=== PATIENT | female | born 1940 | race Caucasian/White ===

== ENCOUNTER → 2017-10-09 15:51 | Outpatient (CLI) | payer MEDICARE, SELFPAY ==
[2017-10-09 18:06] LABS: Hematocrit 37.7 % (37-47); Hemoglobin 12.3 g/dl (12.0-15.0); Mean Corp Hgb Conc 32.6 g/gl (32-36); Mean Corpuscular Hgb 30.2 pg (27.0-32.0); Mean Corpuscular Volume 92.6 fL (81-99); Mean Platelet Vol. 9.2 fl (6.2-12.0); Platelet Count 331 K/mm3 (150-450); RBC Distribution Width CV 12.9 % (11.6-14.6); RBC Distribution Width SD 43.6 fl (35.1-43.9); Red Blood Count 4.07 M/mm3 (4.2-5.4); White Blood Count 5.5 K/mm3 (4.4-11.0)
[2017-10-09 18:08] LABS: Scan Indicated on CBC? Y/N NO
[2017-10-09 18:26] LABS: Anion Gap 6 (5-15); BUN 9 mg/dL (7-18); BUN/Creat Ratio 15.4 RATIO (10-20); Calcium,Total 8.7 mg/dL (8.5-10.1); Chloride 100 mmol/L (98-107); Creatinine, Serum 0.59 mg/dL (0.55-1.02); EST Glomerular Filtration Rate 106 mL/min (>60); Est Glom Filt Rate - Afr Amer 128 mL/min (>60); Ferritin 40 ng/mL (8-252); Glucose 86 mg/dL (74-106); Iron 78 ug/dL (50-170); Potassium 3.9 mmol/L (3.5-5.1); Sodium Level 135 mmol/L (136-145); T4 Free Direct 0.94 ng/dL (0.76-1.46); Thyroid Stim Hormone (TSH) 1.27 uIU/mL (0.358-3.74)
[2017-10-09 20:07] LABS: Magnesium 2.1 mg/dL (1.6-2.6)
[2017-10-10 09:01] LABS: Vitamin D,25 Hydroxy 32.9 ng/mL (29.95-100.01)
== END ==
PROVIDERS: Family Provider Family Medicine; PCP Family Medicine; Visit Provider Family Medicine
DX: G25.81 Restless legs syndrome (principal); G62.9 Polyneuropathy, unspecified; E55.9 Vitamin D deficiency, unspecified; E03.9 Hypothyroidism, unspecified
CPT/HCPCS: 36415; 80048; 82306; 82728; 83540; 83735; 84439; 84443; 85027

== ENCOUNTER → 2018-04-23 12:24 | Outpatient (CLI) | payer MEDICARE, SELFPAY ==
[2018-04-23 15:41] LABS: Hematocrit 36.3 % (37-47); Hemoglobin 11.8 g/dl (12.0-15.0); Mean Corp Hgb Conc 32.5 g/gl (32-36); Mean Corpuscular Hgb 31.1 pg (27.0-32.0); Mean Corpuscular Volume 95.8 fL (81-99); Mean Platelet Vol. 9.7 fl (6.2-12.0); Platelet Count 303 K/mm3 (150-450); RBC Distribution Width CV 13.2 % (11.6-14.6); Red Blood Count 3.79 M/mm3 (4.2-5.4); White Blood Count 4.7 K/mm3 (4.4-11.0)
[2018-04-23 15:45] LABS: Scan Indicated on CBC? Y/N NO
[2018-04-23 16:05] LABS: Vitamin B12 502 pg/mL (211-911)
[2018-04-23 16:46] LABS: Anion Gap 5 (5-15); BUN 11 mg/dL (7-18); BUN/Creat Ratio 17.8 RATIO (10-20); Calcium,Total 8.6 mg/dL (8.5-10.1); Chloride 103 mmol/L (98-107); Creatinine, Serum 0.62 mg/dL (0.55-1.02); EST Glomerular Filtration Rate 99 mL/min (>60); Est Glom Filt Rate - Afr Amer 120 mL/min (>60); Glucose 83 mg/dL (74-106); Iron 71 ug/dL (50-170); Potassium 4.4 mmol/L (3.5-5.1); Sodium Level 137 mmol/L (136-145); Thyroid Stim Hormone (TSH) 1.21 uIU/mL (0.358-3.74)
--- OUTSIDE RECORDS SUMMARY | 2018-06-18 15:41 | XMS RPT_ITS ---
:1940 Author Organization OHIP Care Team Providers Name Role Phone SHAILESH LEUNG Attending Unavailable SHAILESH LEUNG Referring Unavailable Kenny Cooley Attending Unavailable Kenny Cooley Referring Unavailable Kenny Cooley Primary Care Unavailable Kenny Cooley Attending Unavailable Kenny Cooley Primary Care Unavailable PROBLEMS PROBLEMS DATE TYPE CONDITION / CODE ATTENDING STATUS SOURCE 03/06/2018 Active Unspecified NA Active [facility] condition Main [place] associated with Repository female genital organs and menstrual cycle / N94.9(ICD-10) PROCEDURES PROCEDURES No Procedure Records FoundRESULTS RESULTS CBC-COMPLETE BLOOD CNT Collected: 04/23/2018 Status: F Source: [place] NO DIFF 12:25 PM [facility] REPOSITORY TYPE CODE TESTS RESULT OUT OF RANGE REFERENCE UNITS LAB L100.1000 4.4-11.0 K/mm3 Normal WBC 4.7 LAB L100.1200 4.2-5.4 M/mm3 Low RBC 3.79 LAB L100.1300 12.0-15.0 g/dl Low HGB 11.8 LAB L100.1400 37-47 % Low HCT 36.3 LAB L100.1500 81-99 fL Normal MCV 95.8 LAB L100.1600 27.0-32.0 pg Normal MCH 31.1 LAB L100.1700 32-36 g/gl Normal MCHC 32.5 LAB L100.1810 11.6-14.6 % Normal RDW CV 13.2 LAB L100.1820 35.1-43.9 fl High RDW SD 44.0 LAB L100.1900 150-450 K/mm3 Normal PLT 303 LAB L100.2000 6.2-12.0 fl Normal MPV 9.7 Performed By: #### L100.0500, L503.0105, L506.1000, L500.2500, L501.9520, L503.6150 #### [facility] [address] [place], [address] VITAMIN B12 Collected: 04/23/2018 Status: F Source: [place] 12:25 PM [facility] REPOSITORY TYPE CODE TESTS RESULT OUT OF RANGE REFERENCE UNITS LAB L503.0105 211-911 pg/mL Normal Vitamin B12 502 Performed By: #### L100.0500, L503.0105, L506.1000, L500.2500, L501.9520, L503.6150 #### [facility] [address] [place], [address] VITAMIN D,25 HYDROXY Collected: 04/23/2018 Status: F Source: [place] 12:25 PM [facility] REPOSITORY TYPE CODE TESTS RESULT OUT OF REFERENCE UNITS RANGE LAB L506.1000 29.95-100.01 ng/mL Low Vitamin D 29.0 25-OH Result Comment: Vitamin D 25(OH) Status Range Deficiency <20 ng/mL (50nmol/L) Insuffciency 20 - 30 ng/mL (50 - 75 nmol/L) Sufficiency 30 - 100 ng/mL (75 - 250 nmol/L) Toxicity >100 ng/mL (>250 nmol/L) Performed By: #### L100.0500, L503.0105, L506.1000, L500.2500, L501.9520, L503.6150 #### [facility] [address] [place], [address] BASIC METABOLIC Collected: 04/23/2018 Status: F Source: [place] PROFILE (BMP) 12:25 PM [facility] REPOSITORY TYPE CODE TESTS RESULT OUT OF RANGE REFERENCE UNITS LAB L501.0100 74-106 mg/dL Normal GLU 83 Result Comment: Please note revised GLUCOSE reference range effective 2017. LAB L501.1000 7-18 mg/dL Normal BUN 11 LAB L501.1100 0.55-1.02 mg/dL Normal CREAT,SERUM 0.62 Result Comment: The validity of the calculated GFR AND GFRAA in patients over 70 years has not been determined. Clinical correlation is essential. LAB L501.1110 >60 mL/min Normal EST GFR 99 Result Comment: Non- GFR Calc LAB L501.1115 >60 mL/min Normal EST GFR - AA 120 Result Comment: GFR Calc LAB L501.1300 10-20 RATIO Normal BUN/CRE 17.8 LAB L501.2200 8.5-10.1 mg/dL CA Normal 8.6 LAB L501.5300 136-145 mmol/L NA Normal 137 LAB L501.5600 3.5-5.1 mmol/L K Normal 4.4 LAB L501.5900 98-107 mmol/L CL Normal 103 LAB L501.6100 21.0-32.0 mmol/L Normal CO2 29.0 LAB L501.6200 5-15 Normal GAP 5 Performed By: #### L100.0500, L503.0105, L506.1000, L500.2500, L501.9520, L503.6150 #### [facility] [address] [facility] [place], [place], [id number] THYROID STIM HORMONE Collected: 04/23/2018 Status: F Source: [place] (TSH) 12:25 PM [facility] REPOSITORY TYPE CODE TESTS RESULT OUT OF RANGE REFERENCE UNITS LAB L501.9520 0.358-3.74 uIU/mL Normal TSH 1.21 Performed By: #### L100.0500, L503.0105, L506.1000, L500.2500, L501.9520, L503.6150 #### [facility] [address] [facility] [place], [place], [id number] IRON Collected: 04/23/2018 Status: F Source: [place] 12:25 PM [facility] REPOSITORY TYPE CODE TESTS RESULT OUT OF RANGE REFERENCE UNITS LAB L503.6150 50-170 ug/dL Normal IRON 71 Performed By: #### L100.0500, L503.0105, L506.1000, L500.2500, L501.9520, L503.6150 #### [facility] [place], [address] PROGRESS Observed: 03/10/2018 Status: COMPLETED Source: [place] 8:29 AM [facility] REPOSITORY HNO ID: [id number] Author: Shailesh Leung Service: (none) Author Type: Physician Type: Progress Notes Filed: 03/10/2018 8:29 AM Note Text: Can you please let the patient know her ultrasound was unchanged from her prior ultrasound last year? Right ovarian cyst measuring 2.6 cm in size; unchanged. No further workup or treatment needed. To follow up at annual exam. PROGRESS Observed: 03/06/2018 Status: COMPLETED Source: [place] 3:57 PM [facility] REPOSITORY HNO ID: [id number] Author: Teresa Chen Rdms Service: (none) Author Type: (none) Type: Progress Notes Filed: 03/06/2018 3:58 PM Note Text: Radiology Service Progress Note PATIENT NAME: Aram Novoa DATE OF SERVICE: March 06, 2018 TIME: 3:57 PM PATIENT IDENTITY VERIFICATION COMPLETED USING TWO (2) METHODS: Patient confirmed name verbally and Date of . PATIENT GENDER DATA: Female. status: : No status: NO. PATIENT RELEVANT IMPLANT DATA REVIEWED: Not Applicable RADIOLOGY DEPARTMENT: Ultrasound PERIPHERAL IV DATA: Not applicable SIGNED BY: Teresa Chen Rdms March 06, 2018 3:57 PM US FEMALE PELVIS Observed: 03/06/2018 Status: F Source: [facility] 2:37 PM [facility] REPOSITORY * * *Final Report* * * DATE OF EXAM: Mar 06 2018 2:37PM WRU 1060 - US FEMALE PELVIS TRANSVAG / PROCEDURE REASON: Adnexal cyst * * * * Physician Interpretation * * * * EXAMINATION: TRANSVAGINAL AND LIMITED TRANSABDOMINAL PELVIC ULTRASOUND HISTORY: Adnexal cyst TECHNIQUE: Sonography of the pelvis was performed by transvaginal and transabdominal (limited) techniques. Images were obtained and stored in a permanent archive. MQ: [id number] COMPARISON: 02/11/2017 FLMP: Unknown RESULT: Uterus size: 5.7 x 2.4 x 3.2 cm -Orientation: Anteverted -Myometrium: Normal -Endometrial echo complex: 0.3 cm -Cervix: normal Right ovary: 3.3 x 1.7 x 2.5 cm Multiple mildly complex cystic structures in the RIGHT adnexa largest 2.6 x 1.4 x 1.8 cm. This is similar to the previous study. Left ovary: 1.5 x 1.3 x 1.6 cm Simple cyst in the LEFT ovary 5 mm in size. Pelvis free fluid: None seen IMPRESSION: Multiple bilateral cystic structures in the adnexal regions. Drying Unit Felting Machine Operator: LOLIS Transcribe Date/Time: Mar 09 2018 9:08A Dictated by : J LUIS SHANE DO This examination was interpreted and the report reviewed and electronically signed by: J LUIS SHANE DO on Mar 09 2018 5:34PM EST [id number] PROGRESS Observed: 03/04/2018 Status: COMPLETED Source: [place] 1:[address] [facility] [place] REPOSITORY HNO ID: [id number] Author: Shailesh Leung Service: (none) Author Type: Physician Type: Progress Notes Filed: 03/04/2018 2:41 PM Note Text: Arma Novoa is a 77 year old who presents for her annual gynecologic exam with complaints of depression. from [place] 2 years ago. She states she feels alone and sad at times. Has 2 sons. One she has not seen in 28 years. The other is in the area, and recently lost his to breast cancer. Denies suicidal ideations today. She states she sees her PCP for depression and is currently on medication for this. Postmenopausal: Yes, no PMB HRT use: Yes, vaginal estrogen, not using currently as she states her vaginal dryness is not bothering her History of abnormal pap: No Last mammogram: 2014 normal History of abnormal mammogram: No Sexually active: No Hot flashes: No Night sweats: No Vaginal dryness: Yes DEXA 2015 - Osteoporosis Obstetric History T2 L2 SAB0 TAB0 Ectopic0 Multiple0 Live Births0 PAST MEDICAL HISTORY Diagnosis Date - Adjustment disorder with depressed mood - Mitral valve disorders(424.0) MITRAL VALVE PROLAPSE - Nausea alone - Other osteoporosis - Unspecified constipation PAST SURGICAL HISTORY Procedure Laterality Date - BIOPSY BREAST x 2 one on each breast, plus several aspirations - [place]ONOS[place]/ [place] W/[place] [facility] [place] COLONOSCOP W/ OR W/O BRSH SPEC 06/17/2008 Colonoscopy - EGD W/O OR W/BRUSH/WASH 06/17/2008 EGD - PAST SURGICAL HISTORY OF colonization in the 60's for cervical ca FAMILY HISTORY Problem Relation Age of Onset - Cancer Mother ovarian - Breast Cancer Maternal Aunt SOCIAL HISTORY Social History Substance Use Topics - Smoking status: Former Smoker Packs/day: 2.00 Years: 15.00 Types: Cigarettes - Smokeless tobacco: Never Used Comment: quit 1976 - Alcohol use Yes Comment: Occasionally REVIEW OF SYSTEMS Abdomen: No abdominal pain, nausea, vomiting, diarrhea, or constipation Bladder: No dysuria, gross hematuria, urinary frequency Breast: No breast lumps, nipple d/c, overlying skin changes, redness or skin retraction Allergies and current medication updated:Yes EXAM: There were no vitals taken for this visit. GENERAL: emotional, female in no apparent distress HEENT: Normocephalic and atraumatic NECK: full range of motion DERMATOLOGY: Normal and without lesions BREAST: soft, non-tender, symmetric, no dominant mass, normal nipple-areolar complex, no lymphadenopathy and no nipple discharge CHEST: Normal inspiratory effort ABDOMEN: soft, non-tender and no masses PELVIC: external genitalia normal and atrophic appearing, normal Bartholin's glands, urethra, [place]'s glands, no vulvar lesions, no cervical lesions, physiologic discharge present, normal appearing perineal body and perianal region, vaginal mucosa atrophic BIMANUAL: uterus normal size, shape and consistency, no adnexal masses and non-tender NEURO: alert and oriented x3,exam grossly non-focal EXTREMITIES: normal ASSESSMENT/PLAN: 1) Health maintenance: Pap/HPV screening no longer needed. Mammogram no longer needed. Discussed plan with patient, and she no longer wishes to have mammograms. Encouraged self breast awareness. Nutrition, exercise and routine health maintenance exams reviewed. Calcium/Vitamin D supplementation information reviewed. Colon cancer screening: Up to date per patient. BMD: Encouraged patient to get repeat BMD. Had recent fall. Discussed fall precautions and weight bearing exercise. Patient considering a BMD, but does not want one at this time. 2) 2 cm right ovarian cyst on US: Repeat pelvic US ordered 3) Depression: Listening and support provided today. Encouraged patient to follow up with PCP DO JAY Ramírez Observed: 03/04/2018 Status: COMPLETED Source: [place] 1:15 PM [facility] REPOSITORY Office Visit (WOOB) ARAM NOVOA ([id number]) 1940 F Date Time Provider Department 03/04/18 1:15 PM SHAILESH LEUNG During your visit today, we recorded the following information about you: Blood pressure Weight Height 120/66 53.4 kg 1.594 m Shailesh Leung MD 03/04/2018 2:41 PM Signed Aram Aide Novoa is a 77 year old who presents for her annual gynecologic exam with complaints of depression. from Alzheimers 2 years ago. She states she feels alone and sad at times. Has 2 sons. One she has not seen in 28 years. The other is in the area, and recently lost his to breast cancer. Denies suicidal ideations today. She states she sees her PCP for depression and is currently on medication for this. Postmenopausal: Yes, no PMB HRT use: Yes, vaginal estrogen, not using currently as she states her vaginal dryness is not bothering her History of abnormal pap: No Last mammogram: 2014 normal History of abnormal mammogram: No Sexually active: No Hot flashes: No Night sweats: No Vaginal dryness: Yes DEXA 2014 - Osteoporosis Obstetric History T2 L2 SAB0 TAB0 Ectopic0 Multiple0 Live Births0 PAST MEDICAL HISTORY Diagnosis Date - Adjustment disorder with depressed mood - Mitral valve disorders(424.0) MITRAL VALVE PROLAPSE - Nausea alone - Other osteoporosis - Unspecified constipation PAST SURGICAL HISTORY Procedure Laterality Date - BIOPSY BREAST x 2 one on each breast, plus several aspirations - [place]OSCOP W/ [place] W/[place] [facility] [place] - COLONOSCOP W/ OR W/O BRSH SPEC 06/17/2008 Colonoscopy - EGD W/O OR W/BRUSH/WASH 06/17/2008 EGD - PAST SURGICAL HISTORY OF colonization in the 60's for cervical ca FAMILY HISTORY Problem Relation Age of Onset - Cancer Mother ovarian - Breast Cancer Maternal Aunt SOCIAL HISTORY Social History Substance Use Topics - Smoking status: Former Smoker Packs/day: 2.00 Years: 15.00 Types: Cigarettes - Smokeless tobacco: Never Used Comment: quit 1975 - Alcohol use Yes Comment: Occasionally REVIEW OF SYSTEMS Abdomen: No abdominal pain, nausea, vomiting, diarrhea, or constipation Bladder: No dysuria, gross hematuria, urinary frequency Breast: No breast lumps, nipple d/c, overlying skin changes, redness or skin retraction Allergies and current medication updated:Yes EXAM: There were no vitals taken for this visit. GENERAL: emotional, female in no apparent distress HEENT: Normocephalic and atraumatic NECK: full range of motion DERMATOLOGY: Normal and without lesions BREAST: soft, non-tender, symmetric, no dominant mass, normal nipple-areolar complex, no lymphadenopathy and no nipple discharge CHEST: Normal inspiratory effort ABDOMEN: soft, non-tender and no masses PELVIC: external genitalia normal and atrophic appearing, normal Bartholin's glands, urethra, [place]'s glands, no vulvar lesions, no cervical lesions, physiologic discharge present, normal appearing perineal body and perianal region, vaginal mucosa atrophic BIMANUAL: uterus normal size, shape and consistency, no adnexal masses and non-tender NEURO: alert and oriented x3,exam grossly non-focal EXTREMITIES: normal ASSESSMENT/PLAN: 1) Health maintenance: Pap/HPV screening no longer needed. Mammogram no longer needed. Discussed plan with patient, and she no longer wishes to have mammograms. Encouraged self breast awareness. Nutrition, exercise and routine health maintenance exams reviewed. Calcium/Vitamin D supplementation information reviewed. Colon cancer screening: Up to date per patient. BMD: Encouraged patient to get repeat BMD. Had recent fall. Discussed fall precautions and weight bearing exercise. Patient considering a BMD, but does not want one at this time. 2) 2 cm right ovarian cyst on US: Repeat pelvic US ordered 3) Depression: Listening and support provided today. Encouraged patient to follow up with PCP Shailesh Leung DO Referring Provider: SELF [200] Allergies As of Date: 03/04/2018 Noted Allergy Reaction ALEVE (NAPROXEN) 05/30/2005 BEES 03/13/2006 DAYQUIL LIQUICAPS (TTXIYRZGU-HM-G*10/05/2009 Comments: felt weird Hair dye [Other] 09/03/2010 9 - Itching HORNET VENOM 07/22/2008 NYQUIL (DAXKHDRCU-NED-PM-ACETAMIN*10/05/2009 Comments: felt weiidalmis SULFA (SULFONAMIDE ANTIBIOTICS) 05/30/2005 Date Reviewed: 03/04/2018 Reviewed by: Radha Prakash - Fully Assessed Reason for Visit: Well Woman [1463] Primary Visit Diagnosis:Encounter for gynecological examination (general) (routine) without abnormal findings [Z01.419] Other Visit Diagnosis:Adnexal cyst [N94.9] Order(s):PELVIC US WHI [[id number]] Order #: [id number]: 1 FUTURE PELVIC US WHI [[id number]] Order #: [id number]: 1 FEMALE PELVIS TRANSVAG [[id number]] Order #: [id number] FUTURE Prescriptions as of 03/04/2018 Sig: POTASSIUM-99 ORAL Take by mouth. MELATONIN ORAL Take by mouth. CITALOPRAM 20 MG TABLET Take 20 mg by mouth once meme* BIOTIN ORAL Take by mouth. VITAMIN E ORAL Take by mouth. SYNTHROID ORAL Take by mouth. 25 mcg daily * * MULTIVITAMIN CAPSULE Take 1 capsule by mouth twice* * KLONOPIN 1 MG TABLET Take one(1) tablet two(2) gus* * ISAAC-600 WITH VITAMIN D 600 MG* Take one(1) tablet three time* * MAGNESIUM 250 MG TABLET Take one(1) tablet daily. ESTRADIOL 0.01% (0.1 MG/GRAM)* Use 1 gram nightly x 2 weeks * Patient not taking: Reported on 03/04/2018 FISH OIL ORAL Take by mouth. COMPOUNDED PRESCRIPTION Reliv Nutritional Drink Problem List As Of Date 03/04/2018 Noted Resolved GENERALIZED ANXIETY DIS [F41.1] INVALID FOR* DEPRESSIVE DISORDER NEC [F32.9] INVALID FOR* RESTLESS LEGS SYNDROME [G25.81] INVALID FOR* NAUSEA ALONE [R11.0] INVALID FOR* ACUTE GASTRITIS W/O HEMORRHAGE [K29.00] INVALID FOR* Cellulitis and abscess of toe, unspecified [L03*INVALID FOR* Right ovarian cyst [N83.201] INVALID FOR* Level of Service: WELLNESS EXAMS EST 65+ YRS [57465] Disposition: Return in 1 year (on 03/04/2019) for Annual Exam. Follow-up and Disposition History Recorded Encounter Status:Closed by SHAILESH LEUNG MD on 03/04/18 CBC-COMPLETE BLOOD CNT Collected: 10/09/2017 Status: F Source: [place] NO DIFF 4:04 PM [facility] REPOSITORY Order Comment: Order Date: 01/07/17 Order Info: [id number] - CBC TYPE CODE TESTS RESULT OUT OF RANGE REFERENCE UNITS LAB L100.1000 4.4-11.0 K/mm3 Normal WBC 5.5 LAB L100.1200 4.2-5.4 M/mm3 Low RBC 4.07 LAB L100.1300 12.0-15.0 g/dl Normal HGB 12.3 LAB L100.1400 37-47 % Normal HCT 37.7 LAB L100.1500 81-99 fL Normal MCV 92.6 LAB L100.1600 27.0-32.0 pg Normal MCH 30.2 LAB L100.1700 32-36 g/gl Normal MCHC 32.6 LAB L100.1810 11.6-14.6 % Normal RDW CV 12.9 LAB L100.1820 35.1-43.9 fl Normal RDW SD 43.6 LAB L100.1900 150-450 K/mm3 Normal PLT 331 LAB L100.2000 6.2-12.0 fl Normal MPV 9.2 Performed By: #### L100.0500, L500.2500, L501.9520, L503.6150, L503.6550, L506.0400, L506.1000 #### [facility] [address] [facility] [place], [address] BASIC METABOLIC Collected: 10/09/2017 Status: F Source: [place] PROFILE (BMP) 4:04 PM [facility] REPOSITORY Order Comment: Order Date: 01/07/17 Order Info: 0667-1 - BMP Order Info: 3016-3 - TSH Order Info: 2498-4 - FE Order Info: 2276-4 - [place]IGE Order Info: 3024-7 - T4F TYPE CODE TESTS RESULT OUT OF RANGE REFERENCE UNITS LAB L501.0100 74-106 mg/dL Normal GLU 86 Result Comment: Please note revised GLUCOSE reference range effective 2017. LAB L501.1000 7-18 mg/dL Normal BUN 9 LAB L501.1100 0.55-1.02 mg/dL Normal CREAT,SERUM 0.59 Result Comment: The validity of the calculated GFR AND GFRAA in patients over 70 years has not been determined. Clinical correlation is essential. LAB L501.1110 >60 mL/min Normal EST GFR 106 Result Comment: Non- GFR Calc LAB L501.1115 >60 mL/min Normal EST GFR - AA 128 Result Comment: GFR Calc LAB L501.1300 10-20 RATIO Normal BUN/CRE 15.4 LAB L501.2200 8.5-10.1 mg/dL CA Normal 8.7 LAB L501.5300 136-145 mmol/L Low NA 135 LAB L501.5600 3.5-5.1 mmol/L K Normal 3.9 LAB L501.5900 98-107 mmol/L CL Normal 100 LAB L501.6100 21.0-32.0 mmol/L Normal CO2 29.0 LAB L501.6200 5-15 Normal GAP 6 Performed By: #### L100.0500, L500.2500, L501.9520, L503.6150, L503.6550, L506.0400, L506.1000 #### [facility] [address] [place], [place], [id number] THYROID STIM HORMONE Collected: 10/09/2017 Status: F Source: [place] (TSH) 4:04 PM [facility] REPOSITORY Order Comment: Order Date: 01/07/17 Order Info: 0667-1 - BMP Order Info: 3016-3 - TSH Order Info: 2498-4 - FE Order Info: 2276-4 - PAIGE Order Info: 3024-7 - T4F TYPE CODE TESTS RESULT OUT OF RANGE REFERENCE UNITS LAB L501.9520 0.358-3.74 uIU/mL Normal TSH 1.27 Performed By: #### L100.0500, L500.2500, L501.9520, L503.6150, L503.6550, L506.0400, L506.1000 #### [facility] [address] [place], [place], [address] IRON Collected: 10/09/2017 Status: F Source: [place] 4:04 [facility] REPOSITORY Order Comment: Order Date: 01/07/17 Order Info: 666-05 - BMP Order Info: 3 - TSH Order Info: 2497-08 - FE Order Info: 2275-08 - PAIGE Order Info: 7 - T4F TYPE CODE TESTS RESULT OUT OF RANGE REFERENCE UNITS LAB L503.6150 50-170 ug/dL Normal IRON 78 Performed By: #### L100.0500, L500.2500, L501.9520, L503.6150, L503.6550, L506.0400, L506.1000 #### [facility] [address] [place], [place], [id number] FERRITIN Collected: 10/09/2017 Status: F Source: [place] 4:04 [facility] REPOSITORY Order Comment: Order Date: 01/07/17 Order Info: 666-05 - BMP Order Info: 3015-07 - TSH Order Info: 2497-08 - FE Order Info: 2275-08 - PAIGE Order Info: 7 - T4F TYPE CODE TESTS RESULT OUT OF RANGE REFERENCE UNITS LAB L503.6550 8-252 ng/mL Normal FERRITIN 40 Performed By: #### L100.0500, L500.2500, L501.9520, L503.6150, L503.6550, L506.0400, L506.1000 #### [facility] [address] [place], [place], [address] T4 FREE DIRECT Collected: 10/09/2017 Status: F Source: [place] 4:04 [facility] REPOSITORY Order Comment: Order Date: 01/07/17 Order Info: 666-05 - BMP Order Info: 3 - TSH Order Info: 2497-08 - FE Order Info: 2275-08 - PAIGE Order Info: 302-7 - T4F TYPE CODE TESTS RESULT OUT OF RANGE REFERENCE UNITS LAB L506.0400 0.76-1.46 ng/dL Normal T4 FREE 0.94 DIRECT Performed By: #### L100.0500, L500.2500, L501.9520, L503.6150, L503.6550, L506.0400, L506.1000 #### [facility] [address] [place], [address] VITAMIN D,25 HYDROXY Collected: 10/09/2017 Status: F Source: [place] 4:04 PM [facility] REPOSITORY Order Comment: Order Date: 01/07/17 Order Info: 18617-7 - VITD25 TYPE CODE TESTS RESULT OUT OF RANGE REFERENCE UNITS LAB L506.1000 29.95-100.01 ng/mL Normal Vitamin D 32.9 25-OH Result Comment: Vitamin D 25(OH) Status Range Deficiency <20 ng/mL (50nmol/L) Insuffciency 20 - 30 ng/mL (50 - 75 nmol/L) Sufficiency 30 - 100 ng/mL (75 - 250 nmol/L) Toxicity >100 ng/mL (>250 nmol/L) Performed By: #### L100.0500, L500.2500, L501.9520, L503.6150, L503.6550, L506.0400, L506.1000 #### [facility] [address] [place], [address] MAGNESIUM Collected: 10/09/2017 Status: F Source: [place] 4:03 PM [facility] REPOSITORY Order Comment: Order Date: 10/09/17 Order Info: 55057-9 - MG TYPE CODE TESTS RESULT OUT OF RANGE REFERENCE UNITS LAB L501.5200 1.6-2.6 mg/dL Normal MG 2.1 Performed By: #### L501.5200 #### [facility] [address] [place], [address] ALLERGIES ALLERGIES DATE TYPE / CODE NAME / CODE REACTION SEVERITY SOURCE 09/03/2010 Miscellaneous OTHER ITCHING [place] Allergy/[id number](S Clinic Main NOMED CT) [place] Repository 10/05/2009 DRUG/[id number](SNOM GDDBMMZIT-QD-N [facility]) G-ACETAMINOPHE [facility] N [place] Repository 10/05/2009 DRUG/[id number](SNOM DOXYLAMIN-PSE- [facility]) DM-ACETAMINOPH Clinic Main EN [place] Repository 07/22/2008 DRUG HORNET VENOM [place] INGREDI/[id number](S Clinic Main NOMED CT) [place] Repository 03/13/2006 Environ/[id number](S BEES [place] NOMED [facility]) [facility] Main [place] Rep[facility] 05/30/2005 DRUG NAPROXEN [place] INGREDI/[id number](S Clinic Main NOMED CT) [place] Rep[facility] 05/30/2005 Drug SULFA [place] Class/[id number](SNO (SULFONAMIDE Clinic Main MED CT) ANTIBIOTICS) [place] [facility] ENCOUNTERS ENCOUNTERS ADMIT/DISCHARGE ACCOUNT ADMITTING ENCOUNTER LOCATION SOURCE NUMBER CLASS 04/23/2018 [id number] [facility] ing:MFPLAB Repository 03/06/2018/03/06/[id number] [place] Repository 03/04/2018/03/05/[id number] Repository 10/09/2017 [id number] [facility] ing:MTLAB Repository PAYERS PAYERS ENCOUNTER GUARANTOR PAYER SUBSCRIBER SOURCE 04/23/2018 Aram [id number] Primary Aram E HaunDOB: [place] Insurance:[id number] [facility] [id number]: (330) Number: Repository [phone] () [id number] Date:[id number] [address] [place] [id number]: 04/23/2018 Secondary NOT GIVENUNK [place] Insurance:SELF PAY [facility] Number: Effective Repository Date:2018-04-23 10/09/2017 Aram [id number] Primary Aram E HaunDOB: [place] Insurance:HUMANA [id number] [place] [facility] [id number]: ([phone]) Number: Repository [phone] () [id number] Date:[id number] [address] [place] [id number]: 10/09/2017 Secondary NOT [employer] Insurance:SELF PAY [facility] Number: Effective Repository Date:2017-10-09
== END ==
PROVIDERS: Family Provider Family Medicine; PCP Family Medicine; Visit Provider Family Medicine
DX: E03.9 Hypothyroidism, unspecified (principal); R53.83 Other fatigue
CPT/HCPCS: 36415; 80048; 82306; 82607; 83540; 84443; 85027

== ENCOUNTER → 2018-10-06 12:27 | Outpatient (CLI) | payer MEDICARE, SELFPAY ==
--- NOTE | 2018-10-06 12:34 | RAD_ITS ---
HISTORY: injury, rolled foot several weeks ago, COMPARISON: None FINDINGS: XR right foot 3 views Generalized bony demineralization consistent with the patient's age. Transverse, nondisplaced acute/subacute fracture of the right fifth metatarsal base. No dislocation or additional fracture seen. Degenerative arthritis with mild narrowing of the first MTP joint and medial bony and soft tissue bunion at this same level. No bony erosions. Small posterior calcaneal spur. The plantar arch is maintained. RAD/Foot min 3 Views IMPRESSION: 1. Acute/subacute nondisplaced fracture of the right fifth metatarsal base. 2. 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 at 0328 Reported and signed by: Rubén Mcnulty MD Electronically Signed: Rubén Mcnulty, at 3:27 EDT Tel , Service support ,
== END ==
PROVIDERS: Family Provider Family Medicine; PCP Family Medicine; Referring Provider Family Medicine; Visit Provider Family Medicine
DX: S92.901A Unspecified fracture of right foot, initial encounter for closed fracture (principal)
CPT/HCPCS: 73630

== ENCOUNTER → 2018-11-19 | Outpatient (CLI) | payer MEDICARE, SELFPAY ==
--- NOTE | 2018-11-19 13:33 | RAD_ITS ---
STUDY: X-RAY - RIGHT FOOT CLINICAL: Female, 78 years old. Follow-up fracture TECHNIQUE: 3 view(s) of the foot. COMPARISON: None. FINDINGS: Normal talus, calcaneus, and tarsal bones. Small posterior calcaneal enthesophyte. Normal visualized subtalar, talonavicular, calcaneocuboid, tarsal and tarsometatarsal articulations. Nondisplaced oblique fracture the base of the fifth metatarsal bone consistent with pseudo-Ramey fracture. There is degenerative arthrosis of the metatarsophalangeal joint of the hallux . Normal tibial and fibular sesamoid bones. Normal interphalangeal joint of the great toe. Normal phalanges of the great toe. Normal second through fifth metatarsophalangeal joints. Normal interphalangeal joints and phalanges of the lesser toes. The soft tissue structures are unremarkable. RAD/Foot min 3 Views IMPRESSION: Acute pseudo-Ramey fracture. Electronically Signed: Gorge Huggins MD at 16:59 EDT Tel , Service support ,
== END | disposition home or self-care (01) ==
LOC: MTRAD 13:30
PROVIDERS: Family Provider Family Medicine; PCP Family Medicine; Referring Provider Family Medicine; Visit Provider Family Medicine
DX: S92.901A Unspecified fracture of right foot, initial encounter for closed fracture (principal)
CPT/HCPCS: 73630

== ENCOUNTER → 2018-12-24 | Outpatient (CLI) | payer MEDICARE, SELFPAY ==
[2018-12-24 17:52] LABS: Color, Urine Yellow (Yellow); Glucose, Dipstick Normal (Normal); Ketone-Dipstick Negative (Negative); Leukocyte Esterase-Dipstick 500 /ul (Negative); Nitrite-Dipstick Negative (Negative); Occult Blood-Urine Negative /ul (Negative); Protein-Dipstick Negative (Negative); Urine Bilirubin Dipstick Negative (Negative); Urine Clarity Clear (Clear); Urine Urobilinogen Normal (Normal); Urine pH 6.5 (5.0 - 8.0)
[2018-12-24 18:02] LABS: Hemoglobin A1c 5.7 % (4.2-6.3)
[2018-12-24 18:41] LABS: ALB/GLOB Ratio 1.4 RATIO (0.9-2.4); AST(SGOT) 17 U/L (15-37); Alanine Aminotransfer ALT/SGPT 22 U/L (13-56); Albumin, Serum 4.2 g/dL (3.2-5.0); Alkaline Phosphatase 61 U/L (45-117); Anion Gap 5 (5-15); BUN 12 mg/dL (7-18); BUN/Creat Ratio 20.6 RATIO (10-20); Calcium,Total 8.7 mg/dL (8.5-10.1); Chloride 101 mmol/L (98-107); Creatinine, Serum 0.58 mg/dL (0.55-1.02); EST Glomerular Filtration Rate 106 mL/min (>60); Est Glom Filt Rate - Afr Amer 129 mL/min (>60); Glucose 101 mg/dL (74-106); Protein, Total 7.2 g/dL (6.4-8.2); Sodium Level 135 mmol/L (136-145)
[2018-12-28 17:15] LABS: Thyroid Stim Hormone (TSH) 1.54 uIU/mL (0.358-3.74)
== END | disposition home or self-care (01) ==
LOC: MFPLAB 16:49
PROVIDERS: Family Provider Family Medicine; PCP Family Medicine; Referring Provider Family Medicine; Visit Provider Family Medicine
DX: R30.0 Dysuria (principal); K59.00 Constipation, unspecified; F41.1 Generalized anxiety disorder; E03.9 Hypothyroidism, unspecified
CPT/HCPCS: 36415; 80053; 81002; 83036; 84443

== ENCOUNTER → 2019-01-12 | Outpatient (CLI) | payer MEDICARE, SELFPAY | END | disposition home or self-care (01) | LOC: LABSPEC 15:30 | PROVIDERS: Family Provider Family Medicine; PCP Family Medicine; Referring Provider Family Medicine; Visit Provider Family Medicine | DX: N39.0 Urinary tract infection, site not specified (principal) | CPT/HCPCS: 87077; 87086; 87088; 87186 ==

== ENCOUNTER → 2019-03-23 | Outpatient (CLI) | payer MEDICARE, SELFPAY ==
--- NOTE | 2019-03-23 16:31 | RAD_ITS ---
STUDY: X-RAY - RIGHT FOOT CLINICAL: Female, 78 years old. Fifth metatarsal pain TECHNIQUE: 3 view(s) of the foot. COMPARISON: 11/19/2018 FINDINGS: Previous study described Ramey fracture has healed. Bones are demineralized. Calcaneal spurs. Joint spaces fairly well preserved except for arthritic narrowing of the first MTP joint, as well as in the PIP and DIP joints. No demonstrated fracture or suspicious osseous lesion. RAD/Foot min 3 Views IMPRESSION: Previous noted Ramey fracture has healed. Polyarticular arthrosis No demonstrated acute fracture, or osseous lesion Calcaneal spurs Electronically Signed: Nilesh Rao MD at 17:19 EDT , Service support ,
[2019-03-23 18:01] LABS: Absolute Lymphocyte Count 1.46 X10^3/uL (0.83-4.51); Absolute Neutrophil Count 2.2 X10^3/uL (2.0-7.7); Basophil# 0.03 X10^3/uL; Basophil% 0.7 % (0-1); Eosinophil# 0.08 X10^3/uL; Eosinophils% 1.9 % (0-5); Hematocrit 36.5 % (37-47); Hemoglobin 11.8 g/dL (12.0-15.0); Lymphocyte # 1.46 X10^3/ul (4.0); Lymphocyte % 35.4 % (19-41); Mean Corp Hgb Conc 32.3 g/dL (32-36); Mean Corpuscular Hgb 30.3 pg (27.0-32.0); Mean Corpuscular Volume 93.8 fL (81-99); Mean Platelet Vol. 8.8 fl (6.2-12.0); Monocyte# 0.33 X10^3/uL; NRBC Flagged by Analyzer 0 % (0-5); Neutrophil # 2.21 X10^3/uL (2.7-7.7); Neutrophil % 53.8 % (47-70); Platelet Count 300 K/mm3 (150-450); RBC Distribution Width SD 44.5 fl (35.1-43.9); Red Blood Count 3.89 M/mm3 (4.2-5.4); White Blood Count 4.1 K/mm3 (4.4-11.0)
[2019-03-23 18:34] LABS: ALB/GLOB Ratio 1.3 RATIO (0.9-2.4); AST(SGOT) 18 U/L (15-37); Alanine Aminotransfer ALT/SGPT 25 U/L (13-56); Albumin, Serum 4.4 g/dL (3.2-5.0); Alkaline Phosphatase 45 U/L (45-117); Anion Gap 7 (5-15); BUN 10 mg/dL (7-18); BUN/Creat Ratio 16.8 RATIO (10-20); Chloride 102 mmol/L (98-107); EST Glomerular Filtration Rate 104 mL/min (>60); Est Glom Filt Rate - Afr Amer 125 mL/min (>60); Globulin 3.4 g/dL (2.2-4.2); Glucose 81 mg/dL (74-106); Potassium 3.9 mmol/L (3.5-5.1); Protein, Total 7.8 g/dL (6.4-8.2); Sodium Level 135 mmol/L (136-145); Thyroid Stim Hormone (TSH) 1.65 uIU/mL (0.358-3.74)
== END | disposition home or self-care (01) ==
LOC: MTLAB 16:28
PROVIDERS: Family Provider Family Medicine; PCP Family Medicine; Referring Provider Family Medicine; Visit Provider Family Medicine
DX: R60.0 Localized edema (principal); N39.0 Urinary tract infection, site not specified; S92.901A Unspecified fracture of right foot, initial encounter for closed fracture
CPT/HCPCS: 36415; 73630; 80053; 84443; 85025; 87077; 87086; 87088; 87186

== ENCOUNTER → 2019-10-20 14:34 | Outpatient (CLI) | payer MEDICARE, SELFPAY ==
[2019-10-20 16:05] LABS: Anion Gap 6 (5-15); BUN 10 mg/dL (7-18); BUN/Creat Ratio 16.2 RATIO (10-20); Calcium,Total 8.9 mg/dL (8.5-10.1); Chloride 95 mmol/L (98-107); Creatinine, Serum 0.62 mg/dL (0.55-1.02); EST Glomerular Filtration Rate 99 mL/min (>60); Est Glom Filt Rate - Afr Amer 120 mL/min (>60); Glucose 92 mg/dL (74-106); Potassium 3.9 mmol/L (3.5-5.1); Sodium Level 129 mmol/L (136-145); Thyroid Stim Hormone (TSH) 1.67 uIU/mL (0.358-3.74)
[2019-10-20 16:31] LABS: Vitamin B12 407 pg/mL (211-911); Vitamin D,25 Hydroxy 35.1 ng/mL
== END ==
PROVIDERS: PCP Family Medicine; Referring Provider Family Medicine; Visit Provider Family Medicine
DX: G62.9 Polyneuropathy, unspecified (principal); E55.9 Vitamin D deficiency, unspecified; E03.9 Hypothyroidism, unspecified
CPT/HCPCS: 36415; 80048; 82306; 82607; 84443

== ENCOUNTER → 2019-10-21 10:25 | Outpatient (CLI) | payer MEDICARE, SELFPAY ==
[2019-10-21 12:46] LABS: Urine Sodium 36 mmol/L (Not Establ.)
[2019-10-21 13:06] LABS: Osmolality, Serum 273 mOsm/KG (280-301); Osmolality, Urine 163 mOsm/KG
== END ==
PROVIDERS: PCP Family Medicine; Referring Provider Family Medicine; Visit Provider Family Medicine
DX: E87.1 Hypo-osmolality and hyponatremia (principal)
CPT/HCPCS: 36415; 83930; 83935; 84300

== ENCOUNTER → 2019-10-26 12:57 | Outpatient (CLI) | payer MEDICARE, SELFPAY ==
[2019-10-26 15:12] LABS: Osmolality, Serum 278 mOsm/KG (280-301)
[2019-10-26 15:37] LABS: Anion Gap 8 (5-15); BUN 13 mg/dL (7-18); BUN/Creat Ratio 20.1 RATIO (10-20); Calcium,Total 9.1 mg/dL (8.5-10.1); Chloride 96 mmol/L (98-107); Creatinine, Serum 0.65 mg/dL (0.55-1.02); EST Glomerular Filtration Rate 94 mL/min (>60); Est Glom Filt Rate - Afr Amer 114 mL/min (>60); Glucose 88 mg/dL (74-106); Potassium 4.2 mmol/L (3.5-5.1); Sodium Level 133 mmol/L (136-145)
== END ==
PROVIDERS: PCP Family Medicine; Referring Provider Family Medicine; Visit Provider Family Medicine
DX: E87.1 Hypo-osmolality and hyponatremia (principal)
CPT/HCPCS: 36415; 80048; 83930

== ENCOUNTER → 2019-12-22 12:44 | Outpatient (CLI) | payer MEDICARE, SELFPAY ==
[2019-12-22 15:44] LABS: Anion Gap 4 (5-15); BUN 10 mg/dL (7-18); Calcium,Total 8.6 mg/dL (8.5-10.1); Chloride 101 mmol/L (98-107); Creatinine, Serum 0.62 mg/dL (0.55-1.02); EST Glomerular Filtration Rate 98 mL/min (>60); Est Glom Filt Rate - Afr Amer 119 mL/min (>60); Glucose 87 mg/dL (74-106); Potassium 3.9 mmol/L (3.5-5.1); Sodium Level 134 mmol/L (136-145); Thyroid Stim Hormone (TSH) 1.45 uIU/mL (0.358-3.74)
[2019-12-22 16:13] LABS: Osmolality, Serum 280 mOsm/KG (280-301)
== END ==
PROVIDERS: PCP Family Medicine; Referring Provider Family Medicine; Visit Provider Family Medicine
DX: E87.1 Hypo-osmolality and hyponatremia (principal)
CPT/HCPCS: 36415; 80048; 83930; 84443

== ENCOUNTER → 2020-01-11 16:53 | Outpatient (CLI) | payer MEDICARE, SELFPAY | PROVIDERS: PCP Family Medicine; Referring Provider Family Medicine; Visit Provider Family Medicine | DX: R82.90 Unspecified abnormal findings in urine (principal) | CPT/HCPCS: 87077; 87086; 87088; 87186 ==

== ENCOUNTER → 2020-02-16 16:48 | Outpatient (CLI) | payer MEDICARE, SELFPAY ==
[2020-02-16 18:14] LABS: Absolute Lymphocyte Count 1.59 X10^3/uL (0.83-4.51); Absolute Neutrophil Count 2.9 X10^3/uL (2.0-7.7); Basophil# 0.02 X10^3/uL; Basophil% 0.4 % (0-1); Hematocrit 37.9 % (37-47); Hemoglobin 12.2 g/dL (12.0-15.0); Lymphocyte # 1.59 X10^3/ul (4.0); Lymphocyte % 31.7 % (19-41); Mean Corp Hgb Conc 32.2 g/dL (32-36); Mean Corpuscular Volume 93.3 fL (81-99); Monocyte# 0.42 X10^3/uL; Monocyte% 8.4 % (0-10); NRBC Flagged by Analyzer 0 % (0-5); Neutrophil # 2.87 X10^3/uL (2.7-7.7); Neutrophil % 57.1 % (47-70); Platelet Count 344 K/mm3 (150-450); RBC Distribution Width CV 12.7 % (11.6-14.6); RBC Distribution Width SD 44.1 fl (35.1-43.9); Red Blood Count 4.06 M/mm3 (4.2-5.4)
[2020-02-16 18:59] LABS: ALB/GLOB Ratio 1.3 RATIO (0.9-2.4); AST(SGOT) 19 U/L (15-37); Alanine Aminotransfer ALT/SGPT 24 U/L (13-56); Alkaline Phosphatase 55 U/L (45-117); Anion Gap 6 (5-15); BUN 10 mg/dL (7-18); BUN/Creat Ratio 16.7 RATIO (10-20); Calcium,Total 8.8 mg/dL (8.5-10.1); Chloride 102 mmol/L (98-107); EST Glomerular Filtration Rate 102 mL/min (>60); Est Glom Filt Rate - Afr Amer 124 mL/min (>60); Globulin 3.1 g/dL (2.2-4.2); Glucose 79 mg/dL (74-106); Potassium 4.2 mmol/L (3.5-5.1); Protein, Total 7.1 g/dL (6.4-8.2); Sodium Level 136 mmol/L (136-145); Thyroid Stim Hormone (TSH) 1.74 uIU/mL (0.358-3.74)
== END ==
PROVIDERS: PCP Family Medicine; Referring Provider Family Medicine; Visit Provider Family Medicine
DX: F32.9 Major depressive disorder, single episode, unspecified (principal); R39.9 Unspecified symptoms and signs involving the genitourinary system
CPT/HCPCS: 36415; 80053; 84443; 85025; 87077; 87086; 87088; 87186

== ENCOUNTER → 2020-04-03 17:53 | Outpatient (CLI) | payer MEDICARE, SELFPAY | LOC: PR 17:53 → LABSPEC 17:53 | PROVIDERS: PCP Family Medicine; Referring Provider Family Medicine; Visit Provider Family Medicine | DX: R53.83 Other fatigue (principal) | CPT/HCPCS: 87077; 87086; 87088; 87186 ==

== ENCOUNTER 2020-04-09 16:30 | Emergency (ER) | payer MEDICARE, SELFPAY ==
[2020-04-09 16:30] VITALS: BP 143/76; PULSE 78; RESP 16; TEMP 36.2; O2SAT 98; BMI 20.9
[2020-04-09 16:33] VITALS: BP 143/76; PULSE 81; RESP 16; TEMP 36.2; O2SAT 99
--- NOTE | 2020-04-09 16:49 | CT_ITS ---
STUDY: CT ABDOMEN AND PELVIS WITH CONTRAST REASON FOR EXAM: Female, 79 years old. ABDOMEN PAIN AND NAUSEA,RECURRENT UTI''S -- HX:BREAST CANCER,SPINAL STENOSIS RADIATION DOSAGE (If Supplied By Facility): CTDIvol = ( 13.61 ) mGy, DLP = ( 344.12 ) mGycm TECHNIQUE: Transaxial images were obtained from the dome of the diaphragm to the symphysis pubis with oral contrast. Oral and amp; IV Gastrografin and amp; 100mL Isovue-300 was administered. Sagittal and coronal images were reconstructed. Individualized dose optimization techniques were used for this CT. COMPARISON: None. FINDINGS: The visualized lung bases are unremarkable. The visualized portions of the heart are within normal limits. Multiple small hepatic cysts. Normal gallbladder and extrahepatic biliary system. Normal spleen. Normal pancreas. Normal bilateral adrenal glands. Normal right kidney. Normal left kidney. Normal visualized stomach. Normal small intestine. Constipation. The appendix is visualized and appears normal. Normal abdominal aorta. Normal inferior vena cava. Normal retroperitoneum. Normal urinary bladder. Retroverted uterus. Normal abdominal wall. Normal osseous structures. CT/Abdomen/Pelvis WITH Contrast IMPRESSION: No evidence of appendicitis, acute intestinal pathology, or acute obstructive uropathy. Constipation. Electronically Signed: Loc Church MD at 19:18 EST Tel , Service support ,
--- NOTE | 2020-04-09 16:51 | ED.VIS.GEN ---
History of Present Illness Chief Complaint: Complaint Informant: Patient Onset: Month(s) Narrative: Patient presents due to generally not feeling well. Over the past couple months she has had now 3 urinary tract infections. Urine culture showed Klebsiella and she is currently on Levaquin, 4 days of medication taken. Patient continues to complain of lack of energy, generalized fatigue, nausea. She states she really does not have much of an appetite but does force herself to eat. - Past Medical History (1) Spinal stenosis Status: Chronic (2) Neuropathy Status: Chronic (3) Depression Status: Chronic Past Medical History - Allergies and Home Meds Allergies/Adverse Reactions: Allergies Sulfa (Sulfonamide Antibiotics) Allergy (Verified 04/09/20 16:33) Hives naproxen [From Aleve] Adverse Reaction (Verified 04/09/20 16:35) NEEDS FOLLOW-UP Primary Care Physician: Brown Claros MD [STAFF PHYSICIAN] - Corona Cooley MD [Primary Care Provider] - Prior records reviewed: Yes Lives: Alone Review of Systems General: Reports: Chills. Denies: Fever Eyes: Denies: Visual changes - bilaterally ENT: Denies: Bilateral ear pain Cardiovascular: Denies: Chest pain Respiratory: Denies: Dyspnea, Cough Gastrointestinal: Reports: Nausea. Denies: Vomiting Musculoskeletal: Denies: Swelling, Extremity Pain Skin: Denies: Rash Neurological: Reports: Weakness - Generalized weakness. Denies: Headache Hematologic: Denies: Easy bruising, Easy bleeding Allergy: Denies: Uticaria Physical Exam Vital Signs/Narrative: Vital Signs Temp Pulse Resp BP Pulse Ox 04/09/20 16:33 97.1 F L 81 16 143/76 H 99 04/09/20 16:30 97.1 F L 78 16 143/76 H 98 Inital Vital Signs reviewed: Yes General: Well nourished, Well developed Head: Normocephalic ENT: Moist mucous membranes Neck: Supple Cardiovascular: Regular rate, Regular rhythm Respiratory: No distress, CTA bilaterally Abdomen: Soft, Nontender, Hypoactive bowel sounds Extremities: Nontender Skin: Normal color Neurological: Alert, Oriented x3 Psychological: Normal affect Diagnostic/Tx/Re-eval Impressions Abdomen/Pelvis CT 04/09/20 16:49 IMPRESSION: No evidence of appendicitis, acute intestinal pathology, or acute obstructive uropathy. Constipation. Electronically Signed: Loc Church MD at 19:18 EST Tel , Service support , 04/09/20 16:49 Abdomen/Pelvis WITH Contrast [CT] Stat Laboratory Results 04/09/20 04/09/20 04/09/20 17:04 17:05 17:05 WBC 6.0 RBC 4.20 Hgb 13.0 Hct 39.7 MCV 94.5 MCH 31.0 MCHC 32.7 RDW Std Deviation 44.7 H RDW Coeff of Greg 13.0 Plt Count 328 MPV 8.6 Immature Gran % (Auto) 0.300 Neut % (Auto) 62.6 Lymph % (Auto) 28.7 [place] % (Auto) 6.6 Eos % (Auto) 1.5 Baso % (Auto) 0.3 Absolute Neuts (auto) 3.8 Absolute Lymphs (auto) 1.73 Nucleated RBC % 0 Sodium 135 L Potassium 3.8 Chloride 102 Carbon Dioxide 28.0 Anion Gap 5 BUN 9 Creatinine 0.68 Estim Creat Clear Calc 37.74 Est GFR (MDRD) Af Amer 107 Est GFR (MDRD) Non-Af 88 BUN/Creatinine Ratio 13.2 Glucose 89 Calcium 9.1 Urine Color Straw Urine Clarity Sl. Cloudy Urine pH 7.0 Ur Specific [place] 1.010 Urine Protein Negative Urine Glucose (UA) Normal Urine Ketones Negative Urine Occult Blood Negative Urine Nitrite Negative Urine Bilirubin Negative Urine Urobilinogen Normal Ur Leukocyte Esterase 100 H Urine RBC 0 SEEN Urine WBC 0-5 SEEN Ur Squamous Epith Cells 0-5 SEEN Ur Transition Epith Cell 0-5 SEEN Urine Bacteria 0 SEEN Urine Mucus 0 SEEN - Medical Decision Making Patient was given IV fluids and some Zofran here. She does report improvement in her nauseous feeling. Test results are discussed with her. I did review her previous urine cultures. Patient is already been on Keflex as well as Cipro for this Klebsiella infection. She will continue her Levaquin and we will give her some Zofran to use as needed for nausea. She does have evidence of constipation on her CT. She does report longstanding bowel problems. She will be referred to surgery for colonoscopy and further evaluation. ED Disposition - Plan for ED Patient: Disposition: Home or Assisted Living Diagnosis: Constipation Instructions: ED Constipation Prescriptions: Ondansetron [Zofran Odt] 4 mg PO Q8H PRN PRN #10 tab PRN Reason: Nausea Transmission Status: Pending to [id number] Referrals: Corona Cooley MD [Primary Care Provider] - Brown Claros MD [STAFF PHYSICIAN] -
[2020-04-09 17:14] LABS: Bacteria 0 SEEN /hpf (None Seen); Mucous, Urine 0 SEEN /hpf (<or=2+); Red Blood Cells-Urine 0 SEEN /hpf (0-5)
[2020-04-09 17:17] LABS: Absolute Lymphocyte Count 1.73 X10^3/uL (0.83-4.51); Absolute Neutrophil Count 3.8 X10^3/uL (2.0-7.7); Basophil# 0.02 X10^3/uL; Basophil% 0.3 % (0-1); Eosinophil# 0.09 X10^3/uL; Eosinophils% 1.5 % (0-5); Hematocrit 39.7 % (37-47); Lymphocyte # 1.73 X10^3/ul (4.0); Lymphocyte % 28.7 % (19-41); Mean Corp Hgb Conc 32.7 g/dL (32-36); Mean Corpuscular Volume 94.5 fL (81-99); Mean Platelet Vol. 8.6 fl (6.2-12.0); Monocyte% 6.6 % (0-10); NRBC Flagged by Analyzer 0 % (0-5); Neutrophil # 3.76 X10^3/uL (2.7-7.7); Neutrophil % 62.6 % (47-70); Platelet Count 328 K/mm3 (150-450); RBC Distribution Width SD 44.7 fl (35.1-43.9)
[2020-04-09 17:35] LABS: Color, Urine Straw (Yellow); Glucose, Dipstick Normal (Normal); Ketone-Dipstick Negative (Negative); Leukocyte Esterase-Dipstick 100 /ul (Negative); Nitrite-Dipstick Negative (Negative); Occult Blood-Urine Negative /ul (Negative); Protein-Dipstick Negative (Negative); Urine Bilirubin Dipstick Negative (Negative); Urine Clarity Sl. Cloudy (Clear); Urine Urobilinogen Normal (Normal)
[2020-04-09 17:40] LABS: Anion Gap 5 (5-15); BUN 9 mg/dL (7-18); BUN/Creat Ratio 13.2 RATIO (10-20); Calcium,Total 9.1 mg/dL (8.5-10.1); Chloride 102 mmol/L (98-107); Creatinine, Serum 0.68 mg/dL (0.55-1.02); EST Glomerular Filtration Rate 88 mL/min (>60); Est Glom Filt Rate - Afr Amer 107 mL/min (>60); Estimated Creatinine Clearance 37.74 ml/min; Glucose 89 mg/dL (74-106); Potassium 3.8 mmol/L (3.5-5.1); Sodium Level 135 mmol/L (136-145)
[2020-04-09 17:53] LABS: Squamous Epithelial Cells - UA 0-5 SEEN /hpf (5-10)
[2020-04-09 17:55] LABS: Transitional Epithelial - Ur 0-5 SEEN /hpf (0-5); White Blood Cells 0-5 SEEN /hpf (0-5)
[2020-04-09] MEDS: Ondansetron 4 MG/2 ML Vial IV (18:19)
[2020-04-09] MEDS: 0.9% Normal Saline 1,000 ML 1000 ML IV (18:19)
[2020-04-09 19:00] VITALS: BP 134/77; PULSE 68; RESP 15; O2SAT 97
[2020-04-09 20:18] VITALS: BP 147/67; PULSE 69; RESP 16; O2SAT 95
== END 2020-04-09 20:19 | disposition home or self-care (01) ==
PROVIDERS: Emergency Provider Emergency Medicine; PCP Family Medicine
DX: K59.00 Constipation, unspecified (principal); F32.9 Major depressive disorder, single episode, unspecified
CPT/HCPCS: 74177; 80048; 81001; 85025; 87086; 96361; 96374; 99283; J7030; Q9967; A4216; J2405

== ENCOUNTER → 2020-05-03 12:06 | Outpatient (CLI) | payer MEDICARE, SELFPAY ==
[2020-04-11 09:15] VITALS: BMI 20.9
== END ==
PROVIDERS: PCP Family Medicine; Referring Provider Family Medicine; Visit Provider Family Medicine
DX: R53.83 Other fatigue (principal)
CPT/HCPCS: 87635; U0003

== ENCOUNTER → 2020-05-23 09:45 | Outpatient (CLI) | payer MEDICARE, SELFPAY ==
[2020-04-11 09:15] VITALS: BMI 20.9
[2020-05-23 12:48] LABS: Vitamin D,25 Hydroxy 26.5 ng/mL
[2020-05-23 13:06] LABS: Anion Gap 6 (5-15); BUN 10 mg/dL (7-18); BUN/Creat Ratio 15.8 RATIO (10-20); Calcium,Total 8.8 mg/dL (8.5-10.1); Chloride 100 mmol/L (98-107); Creatinine, Serum 0.63 mg/dL (0.55-1.02); EST Glomerular Filtration Rate 96 mL/min (>60); Est Glom Filt Rate - Afr Amer 117 mL/min (>60); Glucose 104 mg/dL (74-106); Sodium Level 131 mmol/L (136-145); Thyroid Stim Hormone (TSH) 1.33 uIU/mL (0.358-3.74)
== END ==
PROVIDERS: PCP Family Medicine; Visit Provider Family Medicine
DX: M81.0 Age-related osteoporosis without current pathological fracture (principal); E03.9 Hypothyroidism, unspecified
CPT/HCPCS: 36415; 80048; 82306; 84443

== ENCOUNTER → 2020-08-14 16:36 | Outpatient (CLI) | payer MEDICARE, SELFPAY ==
[2020-04-11 09:15] VITALS: BMI 20.9
[2020-08-14 18:03] LABS: Vitamin D,25 Hydroxy 25.9 ng/mL
[2020-08-14 18:09] LABS: Anion Gap 4 (5-15); BUN 10 mg/dL (7-18); BUN/Creat Ratio 14.9 RATIO (10-20); Calcium,Total 8.9 mg/dL (8.5-10.1); Chloride 96 mmol/L (98-107); Creatinine, Serum 0.67 mg/dL (0.55-1.02); EST Glomerular Filtration Rate 90 mL/min (>60); Est Glom Filt Rate - Afr Amer 109 mL/min (>60); Glucose 104 mg/dL (74-106); Potassium 4.4 mmol/L (3.5-5.1); Sodium Level 128 mmol/L (136-145); T4 Free Direct 0.97 ng/dL (0.76-1.46); Thyroid Stim Hormone (TSH) 1.91 uIU/mL (0.358-3.74)
== END ==
PROVIDERS: PCP Family Medicine; Visit Provider Family Medicine
DX: E03.9 Hypothyroidism, unspecified (principal); M81.0 Age-related osteoporosis without current pathological fracture
CPT/HCPCS: 36415; 80048; 82306; 84439; 84443

== ENCOUNTER → 2020-08-28 13:33 | Outpatient (CLI) | payer MEDICARE, SELFPAY ==
[2020-04-11 09:15] VITALS: BMI 20.9
[2020-08-28 15:27] LABS: Sodium Level 129 mmol/L (136-145)
[2020-08-29 13:13] LABS: T4 Free Direct 0.95 ng/dL (0.76-1.46); Thyroid Stim Hormone (TSH) 1.42 uIU/mL (0.358-3.74)
[2020-08-30 08:22] LABS: Vitamin D,25 Hydroxy 31.2 ng/mL
== END ==
PROVIDERS: PCP Family Medicine; Visit Provider Family Medicine
DX: E03.9 Hypothyroidism, unspecified (principal); M81.0 Age-related osteoporosis without current pathological fracture; E87.1 Hypo-osmolality and hyponatremia
CPT/HCPCS: 36415; 82306; 84295; 84439; 84443

== ENCOUNTER → 2020-09-11 10:00 | Outpatient (CLI) | payer MEDICARE, SELFPAY ==
[2020-04-11 09:15] VITALS: BMI 20.9
[2020-09-11 12:52] LABS: Vitamin D,25 Hydroxy 31.8 ng/mL
[2020-09-11 13:08] LABS: Anion Gap 4 (5-15); BUN 11 mg/dL (7-18); Calcium,Total 8.7 mg/dL (8.5-10.1); Chloride 99 mmol/L (98-107); Creatinine, Serum 0.69 mg/dL (0.55-1.02); EST Glomerular Filtration Rate 88 mL/min (>60); Est Glom Filt Rate - Afr Amer 106 mL/min (>60); Glucose 77 mg/dL (74-106); Sodium Level 132 mmol/L (136-145); T4 Free Direct 0.97 ng/dL (0.76-1.46); Thyroid Stim Hormone (TSH) 1.91 uIU/mL (0.358-3.74)
== END ==
PROVIDERS: PCP Family Medicine; Visit Provider Family Medicine
DX: F32.9 Major depressive disorder, single episode, unspecified (principal); E03.9 Hypothyroidism, unspecified; E55.9 Vitamin D deficiency, unspecified
CPT/HCPCS: 36415; 80048; 82306; 84439; 84443

== ENCOUNTER → 2020-10-12 14:47 | Outpatient (CLI) | payer MEDICARE, SELFPAY ==
[2020-04-11 09:15] VITALS: BMI 20.9
[2020-10-12 17:45] LABS: Anion Gap 5 (5-15); BUN 14 mg/dL (7-18); BUN/Creat Ratio 22.5 RATIO (10-20); Calcium,Total 9.3 mg/dL (8.5-10.1); Chloride 98 mmol/L (98-107); Creatinine, Serum 0.62 mg/dL (0.55-1.02); EST Glomerular Filtration Rate 98 mL/min (>60); Est Glom Filt Rate - Afr Amer 119 mL/min (>60); Glucose 80 mg/dL (74-106); Potassium 4.1 mmol/L (3.5-5.1); Sodium Level 132 mmol/L (136-145)
== END ==
PROVIDERS: PCP Family Medicine; Visit Provider Family Medicine
DX: E87.1 Hypo-osmolality and hyponatremia (principal); M81.0 Age-related osteoporosis without current pathological fracture
CPT/HCPCS: 36415; 80048; 82306

== ENCOUNTER → 2020-11-29 15:37 | Outpatient (CLI) | payer MEDICARE, SELFPAY ==
[2020-04-11 09:15] VITALS: BMI 20.9
[2020-11-29 17:43] LABS: Absolute Lymphocyte Count 1.64 X10^3/uL (0.83-4.51); Absolute Neutrophil Count 4.6 X10^3/uL (2.0-7.7); Basophil# 0.03 X10^3/uL; Basophil% 0.4 % (0-1); Eosinophil# 0.07 X10^3/uL; Hematocrit 38.3 % (37-47); Hemoglobin 12.7 g/dL (12.0-15.0); Lymphocyte # 1.64 X10^3/ul (0.83-4.51); Lymphocyte % 23.9 % (19-41); Mean Corp Hgb Conc 33.2 g/dL (32-36); Mean Corpuscular Hgb 30.7 pg (27.0-32.0); Mean Corpuscular Volume 92.5 fL (81-99); Monocyte# 0.56 X10^3/uL; Monocyte% 8.2 % (0-10); NRBC Flagged by Analyzer 0 % (0-5); Neutrophil # 4.56 X10^3/uL (2.7-7.7); Neutrophil % 66.4 % (47-70); Platelet Count 356 K/mm3 (150-450); Red Blood Count 4.14 M/mm3 (4.2-5.4); White Blood Count 6.9 K/mm3 (4.4-11.0)
[2020-11-29 18:11] LABS: ALB/GLOB Ratio 1.2 RATIO (0.9-2.4); AST(SGOT) 18 U/L (15-37); Alanine Aminotransfer ALT/SGPT 26 U/L (13-56); Albumin, Serum 4.3 g/dL (3.2-5.0); Alkaline Phosphatase 51 U/L (45-117); Anion Gap 8 (5-15); BUN 13 mg/dL (7-18); BUN/Creat Ratio 20.3 RATIO (10-20); Calcium,Total 8.9 mg/dL (8.5-10.1); Chloride 96 mmol/L (98-107); Creatinine, Serum 0.64 mg/dL (0.55-1.02); EST Glomerular Filtration Rate 95 mL/min (>60); Est Glom Filt Rate - Afr Amer 115 mL/min (>60); Globulin 3.5 g/dL (2.2-4.2); Glucose 91 mg/dL (74-106); Potassium 4.7 mmol/L (3.5-5.1); Protein, Total 7.8 g/dL (6.4-8.2); Sodium Level 133 mmol/L (136-145); Thyroid Stim Hormone (TSH) 1.14 uIU/mL (0.358-3.74)
== END ==
PROVIDERS: PCP Family Medicine; Visit Provider Family Medicine
DX: F32.9 Major depressive disorder, single episode, unspecified (principal)
CPT/HCPCS: 36415; 80053; 84443; 85025

== ENCOUNTER → 2021-01-18 17:01 | Outpatient (CLI) | payer MEDICARE, SELFPAY ==
--- NOTE | 2021-01-18 17:05 | RAD_ITS ---
INDICATION: LUMBAGO EXAMINATION/TECHNIQUE: X-RAY - XR Spine Lumbar Comp W/ Bending Min 6 Views COMPARISON: None. FINDINGS: VERTEBRAE: Preserved vertebral body height. No fracture. 3 mm retrolisthesis L1 on L2. 3 mm retrolisthesis L2 on L3. 3 mm anterolisthesis L3 on L4. Preservation of the normal lumbar lordosis. Moderate multilevel facet arthropathy. No instability on flexion/extension views. DISCS: Moderate multilevel degenerative disc disease and spondylosis. INCLUDED ABDOMEN: Included bowel gas pattern is non-obstructive. RAD/L/S Spine Comp/w Bending Views IMPRESSION: Multilevel grade 1 spondylolisthesis of the lumbar spine as described above. Moderate multilevel degenerative disc disease and spondylosis. Electronically Signed: Kenny Kidd MD at 17:31 EDT Tel , Service support ,
[2021-01-18 18:01] LABS: Anion Gap 4 (5-15); BUN 8 mg/dL (7-18); BUN/Creat Ratio 12.9 RATIO (10-20); Calcium,Total 8.5 mg/dL (8.5-10.1); Chloride 97 mmol/L (98-107); Creatinine, Serum 0.62 mg/dL (0.55-1.02); EST Glomerular Filtration Rate 99 mL/min (>60); Est Glom Filt Rate - Afr Amer 120 mL/min (>60); Glucose 84 mg/dL (74-106); Potassium 4.1 mmol/L (3.5-5.1); Sodium Level 133 mmol/L (136-145)
== END ==
PROVIDERS: PCP Family Medicine; Referring Provider Family Medicine; Visit Provider Family Medicine
DX: M54.5 Low back pain (principal); E87.1 Hypo-osmolality and hyponatremia
CPT/HCPCS: 36415; 72114; 80048

== ENCOUNTER → 2021-02-07 11:20 | Outpatient (CLI) | payer MEDICARE, SELFPAY ==
[2021-02-07 15:09] LABS: Erythrocyte Sedimentation Rate 3 mm/hr (0-30)
[2021-02-07 15:11] LABS: Absolute Lymphocyte Count 1.13 X10^3/uL (0.83-4.51); Absolute Neutrophil Count 3.5 X10^3/uL (2.0-7.7); Basophil# 0.02 X10^3/uL; Basophil% 0.4 % (0-1); Eosinophil# 0.05 X10^3/uL; Hemoglobin 13.4 g/dL (12.0-15.0); Lymphocyte # 1.13 X10^3/ul (0.83-4.51); Lymphocyte % 21.9 % (19-41); Mean Corp Hgb Conc 32.7 g/dL (32-36); Mean Corpuscular Hgb 30.7 pg (27.0-32.0); Mean Platelet Vol. 9.3 fl (6.2-12.0); Monocyte% 7.8 % (0-10); NRBC Flagged by Analyzer 0 % (0-5); Neutrophil # 3.54 X10^3/uL (2.7-7.7); Neutrophil % 68.7 % (47-70); Platelet Count 369 K/mm3 (150-450); RBC Distribution Width CV 12.5 % (11.6-14.6); RBC Distribution Width SD 43.6 fl (35.1-43.9); Red Blood Count 4.36 M/mm3 (4.2-5.4); White Blood Count 5.2 K/mm3 (4.4-11.0)
[2021-02-07 15:48] LABS: ALB/GLOB Ratio 1.1 RATIO (0.9-2.4); AST(SGOT) 20 U/L (15-37); Alanine Aminotransfer ALT/SGPT 32 U/L (13-56); Albumin, Serum 4.4 g/dL (3.2-5.0); Alkaline Phosphatase 53 U/L (45-117); Anion Gap 5 (5-15); BUN 11 mg/dL (7-18); BUN/Creat Ratio 16.6 RATIO (10-20); Calcium,Total 9.3 mg/dL (8.5-10.1); Chloride 98 mmol/L (98-107); Creatinine, Serum 0.66 mg/dL (0.55-1.02); EST Glomerular Filtration Rate 91 mL/min (>60); Est Glom Filt Rate - Afr Amer 110 mL/min (>60); Globulin 3.9 g/dL (2.2-4.2); Glucose 94 mg/dL (74-106); Iron 102 ug/dL (50-170); Potassium 3.9 mmol/L (3.5-5.1); Protein, Total 8.3 g/dL (6.4-8.2); Sodium Level 133 mmol/L (136-145); Thyroid Stim Hormone (TSH) 1.36 uIU/mL (0.358-3.74)
[2021-02-07 16:05] LABS: Vitamin B12 378 pg/mL (211-911); Vitamin D,25 Hydroxy 61.2 ng/mL
== END ==
PROVIDERS: PCP Family Medicine; Referring Provider Family Medicine; Visit Provider Family Medicine
DX: R39.11 Hesitancy of micturition (principal); R53.83 Other fatigue; E55.9 Vitamin D deficiency, unspecified
CPT/HCPCS: 36415; 80053; 82306; 82533; 82607; 83540; 84443; 85025; 85652; 87086; 87088

== ENCOUNTER 2021-07-17 17:58 | Outpatient (CLI) | payer MEDICARE, SELFPAY | END 2021-07-17 23:59 | disposition home or self-care (01) | PROVIDERS: PCP Family Medicine; Visit Provider Family Medicine | DX: R39.11 Hesitancy of micturition (principal) | CPT/HCPCS: 87086 ==

== ENCOUNTER → 2021-11-29 | Outpatient (CLI) | payer MEDICARE, SELFPAY ==
[2021-11-29 18:11] LABS: Vitamin B12 1411 pg/mL (211-911); Vitamin D,25 Hydroxy 53.6 ng/mL
[2021-11-29 18:22] LABS: Anion Gap 8 (5-15); BUN 13 mg/dL (7-18); BUN/Creat Ratio 22.3 RATIO (10-20); Calcium,Total 9.1 mg/dL (8.5-10.1); Chloride 94 mmol/L (98-107); Creatinine, Serum 0.58 mg/dL (0.55-1.02); EST Glomerular Filtration Rate 106 mL/min (>60); Est Glom Filt Rate - Afr Amer 128 mL/min (>60); Glucose 92 mg/dL (74-106); Magnesium 2.7 mg/dL (1.6-2.6); Potassium 3.9 mmol/L (3.5-5.1); Sodium Level 130 mmol/L (136-145); Thyroid Stim Hormone (TSH) 1.91 uIU/mL (0.358-3.74)
== END | disposition home or self-care (01) ==
LOC: MFPLAB 14:21
PROVIDERS: PCP Family Medicine; Visit Provider Family Medicine
DX: E87.1 Hypo-osmolality and hyponatremia (principal); E55.9 Vitamin D deficiency, unspecified; E03.9 Hypothyroidism, unspecified
CPT/HCPCS: 36415; 80048; 82306; 82607; 83735; 84443

== ENCOUNTER → 2022-04-03 | Outpatient (CLI) | payer MEDICARE, SELFPAY ==
--- NOTE | 2022-04-03 11:48 | RAD_ITS ---
STUDY: X-RAY CHEST REASON FOR EXAM: Female, 81 years old. Atypical Pneumonia TECHNIQUE: Frontal and lateral views of the chest. COMPARISON: None. FINDINGS: There are patchy right mid and lower lung increased opacities . There is no demonstrated pleural abnormality. Normal size heart. Normal mediastinum and shari. Normal visualized pulmonary arteries. Normal visualized aortic arch and descending thoracic aorta. There is demineralization of the osseous structures. Normal visualized ribs, clavicles, and shoulders. There is no demonstrated abnormality of the visualized soft tissue structures of the upper abdomen. RAD/Chest PA and Lateral IMPRESSION: Right mid and lower lung infiltrate or edema. Electronically Signed: Korey Freeman MD at 22:42 EST ,
== END | disposition home or self-care (01) ==
LOC: MTRAD 11:36
PROVIDERS: PCP Family Medicine; Referring Provider Family Medicine; Visit Provider Family Medicine
DX: J18.9 Pneumonia, unspecified organism (principal)
CPT/HCPCS: 71046

== ENCOUNTER → 2022-04-26 | Outpatient (CLI) | payer MEDICARE, SELFPAY ==
[2022-04-26 12:59] LABS: Vitamin B12 937 pg/mL (211-911); Vitamin D,25 Hydroxy 71.2 ng/mL
[2022-04-26 13:10] LABS: Anion Gap 3 (5-15); BUN 13 mg/dL (7-18); BUN/Creat Ratio 22.4 RATIO (10-20); Calcium,Total 9.4 mg/dL (8.5-10.1); Chloride 99 mmol/L (98-107); Creatinine, Serum 0.58 mg/dL (0.55-1.02); EST Glomerular Filtration Rate 106 mL/min (>60); Est Glom Filt Rate - Afr Amer 128 mL/min (>60); Glucose 92 mg/dL (74-106); Sodium Level 133 mmol/L (136-145); Thyroid Stim Hormone (TSH) 1.48 uIU/mL (0.358-3.74)
== END | disposition home or self-care (01) ==
LOC: MFPLAB 11:03
PROVIDERS: PCP Family Medicine; Referring Provider Family Medicine; Visit Provider Family Medicine
DX: E87.1 Hypo-osmolality and hyponatremia (principal); E55.9 Vitamin D deficiency, unspecified; E03.9 Hypothyroidism, unspecified
CPT/HCPCS: 36415; 80048; 82306; 82607; 84443

== ENCOUNTER → 2022-08-13 | Outpatient (CLI) | payer MEDICARE, SELFPAY ==
[2022-08-14 08:34] LABS: Mucous, Urine 0 SEEN /hpf (<or=2+); Red Blood Cells-Urine 0 SEEN /hpf (0-5)
[2022-08-14 09:03] LABS: Color, Urine Yellow (Yellow); Glucose, Dipstick Normal (Normal); Ketone-Dipstick Negative (Negative); Leukocyte Esterase-Dipstick 25 /ul (Negative); Nitrite-Dipstick Negative (Negative); Occult Blood-Urine Negative /ul (Negative); Protein-Dipstick Negative (Negative); Specific Gravity, Urine 1.005 (1.002-1.030); Urine Bilirubin Dipstick Negative (Negative); Urine Clarity Sl. Cloudy (Clear); Urine Urobilinogen Normal (Normal)
[2022-08-14 09:19] LABS: Bacteria 1+ /hpf (None Seen); Squamous Epithelial Cells - UA 0-5 SEEN /hpf (5-10); White Blood Cells 0-5 SEEN /hpf (0-5)
== END | disposition home or self-care (01) ==
LOC: MFPLAB 14:30
PROVIDERS: PCP Family Medicine; Referring Provider Family Medicine; Visit Provider Family Medicine
DX: R39.9 Unspecified symptoms and signs involving the genitourinary system (principal)
CPT/HCPCS: 81001; 87077; 87086; 87088; 87186

== ENCOUNTER → 2022-09-02 | Outpatient (CLI) | payer MEDICARE, SELFPAY | END | disposition home or self-care (01) | LOC: MFPLAB 14:06 | PROVIDERS: PCP Family Medicine; Visit Provider Family Medicine | DX: R39.9 Unspecified symptoms and signs involving the genitourinary system (principal) | CPT/HCPCS: 87086; 87088 ==

== ENCOUNTER → 2022-10-03 | Outpatient (CLI) | payer MEDICARE, SELFPAY ==
[2022-10-03 18:12] LABS: Hematocrit 37.4 % (37-47); Hemoglobin 12.3 g/dL (12.0-15.0); Mean Corp Hgb Conc 32.9 g/dL (32-36); Mean Corpuscular Hgb 30.5 pg (27.0-32.0); Mean Corpuscular Volume 92.8 fL (81-99); Mean Platelet Vol. 9.2 fl (6.2-12.0); Platelet Count 261 K/mm3 (150-450); RBC Distribution Width CV 13.2 % (11.6-14.6); RBC Distribution Width SD 45.1 fl (35.1-43.9); Red Blood Count 4.03 M/mm3 (4.2-5.4); White Blood Count 2.2 K/mm3 (4.4-11.0)
[2022-10-03 18:36] LABS: Vitamin B12 873 pg/mL (211-911); Vitamin D,25 Hydroxy 81.3 ng/mL
[2022-10-03 18:42] LABS: AST(SGOT) 44 U/L (15-37); Alanine Aminotransfer ALT/SGPT 60 U/L (13-56); Alkaline Phosphatase 67 U/L (45-117); Anion Gap 6 (5-15); BUN 9 mg/dL (7-18); BUN/Creat Ratio 15.7 RATIO (10-20); Bilirubin, Direct 0.15 mg/dL (0.00-0.30); Calcium,Total 8.6 mg/dL (8.5-10.1); Chloride 98 mmol/L (98-107); Creatinine, Serum 0.57 mg/dL (0.55-1.02); EST Glomerular Filtration Rate 108 mL/min (>60); Est Glom Filt Rate - Afr Amer 130 mL/min (>60); Ferritin 98 ng/mL (8-252); Globulin 3.3 g/dL (2.2-4.2); Glucose 90 mg/dL (74-106); Iron 67 ug/dL (50-170); Magnesium 2.3 mg/dL (1.6-2.6); Potassium 4.3 mmol/L (3.5-5.1); Protein, Total 7.3 g/dL (6.4-8.2); Sodium Level 131 mmol/L (136-145); Thyroid Stim Hormone (TSH) 1.09 uIU/mL (0.358-3.74)
== END | disposition home or self-care (01) ==
LOC: MFPLAB 14:26
PROVIDERS: PCP Family Medicine; Visit Provider Family Medicine
DX: E87.1 Hypo-osmolality and hyponatremia (principal); E55.9 Vitamin D deficiency, unspecified; K59.00 Constipation, unspecified; G25.81 Restless legs syndrome
CPT/HCPCS: 36415; 80048; 80076; 82306; 82607; 82728; 83540; 83735; 84443; 85027

== ENCOUNTER → 2023-03-18 | Outpatient (CLI) | payer MEDICARE, SELFPAY ==
[2023-03-18 17:52] LABS: Absolute Lymphocyte Count 1.31 X10^3/uL (0.83-4.51); Absolute Neutrophil Count 4.5 X10^3/uL (2.0-7.7); Basophil# 0.04 X10^3/uL; Basophil% 0.6 % (0-1); Eosinophil# 0.09 X10^3/uL; Eosinophils% 1.4 % (0-5); Hematocrit 35.1 % (37-47); Hemoglobin 11.4 g/dL (12.0-15.0); Lymphocyte # 1.31 X10^3/ul (0.83-4.51); Lymphocyte % 20.4 % (19-41); Mean Corp Hgb Conc 32.5 g/dL (32-36); Mean Corpuscular Hgb 30.6 pg (27.0-32.0); Mean Corpuscular Volume 94.4 fL (81-99); Mean Platelet Vol. 9.1 fl (6.2-12.0); Monocyte# 0.51 X10^3/uL; Monocyte% 7.9 % (0-10); NRBC Flagged by Analyzer 0 % (0-5); Neutrophil # 4.45 X10^3/uL (2.7-7.7); Neutrophil % 69.4 % (47-70); Platelet Count 324 K/mm3 (150-450); RBC Distribution Width CV 13.5 % (11.6-14.6); RBC Distribution Width SD 46.5 fl (35.1-43.9); Red Blood Count 3.72 M/mm3 (4.2-5.4); White Blood Count 6.4 K/mm3 (4.4-11.0)
[2023-03-18 18:27] LABS: Vitamin B12 538 pg/mL (211-911)
[2023-03-18 18:49] LABS: ALB/GLOB Ratio 1.2 RATIO (0.9-2.4); AST(SGOT) 36 U/L (15-37); Alanine Aminotransfer ALT/SGPT 42 U/L (13-56); Albumin, Serum 3.9 g/dL (3.2-5.0); Alkaline Phosphatase 74 U/L (45-117); Anion Gap 7 (5-15); BUN 14 mg/dL (7-18); BUN/Creat Ratio 20.2 RATIO (10-20); Calcium,Total 8.3 mg/dL (8.5-10.1); Chloride 103 mmol/L (98-107); Creatinine, Serum 0.69 mg/dL (0.55-1.02); EST Glomerular Filtration Rate 86 mL/min (>60); Est Glom Filt Rate - Afr Amer 104 mL/min (>60); Ferritin 20 ng/mL (8-252); Globulin 3.2 g/dL (2.2-4.2); Glucose 86 mg/dL (74-106); Iron 46 ug/dL (50-170); Protein, Total 7.1 g/dL (6.4-8.2); Sodium Level 135 mmol/L (136-145); Thyroid Stim Hormone (TSH) 2.71 uIU/mL (0.358-3.74)
== END | disposition home or self-care (01) ==
LOC: MTLAB 14:47
PROVIDERS: PCP Family Medicine; Referring Provider Family Medicine; Visit Provider Family Medicine
DX: T14.8XXA Other injury of unspecified body region, initial encounter (principal); R60.0 Localized edema; E03.9 Hypothyroidism, unspecified; G25.81 Restless legs syndrome
CPT/HCPCS: 36415; 80053; 82607; 82728; 83540; 84443; 85025

== ENCOUNTER 2023-04-16 12:43 | Outpatient (CLI) | payer MEDICARE, SELFPAY ==
[2023-04-16 13:35] VITALS: BP 145/77; PULSE 74; RESP 16; TEMP 36.8; O2SAT 97; BMI 20.9
[2023-04-16] MEDS: 0.9% NaCl Peripheral Flush Adult/Peds IV (13:42)
[2023-04-16] MEDS: Iron Sucrose Complex 200 MG in 0.9% Normal Saline (100mL Bag) 100 ML 220 MG IV (13:42)
[2023-04-16] MEDS: 0.9% NaCl IVPB Med Flush (250 mL) 15 ML IV (13:42)
[2023-04-16 15:01] VITALS: BP 152/60; PULSE 65; RESP 16; TEMP 36.3; O2SAT 96
== END 2023-04-16 12:44 | disposition home or self-care (01) ==
LOC: MEDOUTP 12:45
PROVIDERS: PCP Family Medicine; Referring Provider Family Medicine; Visit Provider Family Medicine
DX: D50.9 Iron deficiency anemia, unspecified (principal); G25.81 Restless legs syndrome
CPT/HCPCS: 96365; J1756; J7050; A4216

== ENCOUNTER 2023-04-18 11:50 | Outpatient (CLI) | payer MEDICARE, SELFPAY ==
[2023-04-18] MEDS: Iron Sucrose Complex 200 MG in 0.9% Normal Saline (100mL Bag) 100 ML 220 MG IV (12:23)
[2023-04-18] MEDS: 0.9% NaCl IVPB Med Flush (250 mL) 15 ML IV (12:24)
[2023-04-18] MEDS: 0.9% NaCl Peripheral Flush Adult/Peds IV (12:24)
[2023-04-18 12:26] VITALS: BP 141/59; PULSE 75; RESP 16; TEMP 36.3; O2SAT 98; BMI 21.2
[2023-04-18 13:19] VITALS: BP 141/62; PULSE 68; RESP 16; O2SAT 97
== END 2023-04-18 11:51 | disposition home or self-care (01) ==
LOC: MEDOUTP 11:50
PROVIDERS: PCP Family Medicine; Referring Provider Family Medicine; Visit Provider Family Medicine
DX: D50.9 Iron deficiency anemia, unspecified (principal); G25.81 Restless legs syndrome
CPT/HCPCS: 96365; J1756; J7050; A4216

== ENCOUNTER 2023-04-21 11:46 | Outpatient (CLI) | payer MEDICARE, SELFPAY ==
[2023-04-21 12:07] VITALS: BP 135/57; PULSE 74; RESP 16; TEMP 36.2; O2SAT 98
[2023-04-21] MEDS: 0.9% NaCl Peripheral Flush Adult/Peds IV (12:13)
[2023-04-21] MEDS: Iron Sucrose Complex 200 MG in 0.9% Normal Saline (100mL Bag) 100 ML 220 MG IV (12:25)
[2023-04-21] MEDS: 0.9% NaCl IVPB Med Flush (250 mL) 15 ML IV (12:25)
[2023-04-21 13:05] VITALS: BP 127/64; PULSE 68; RESP 16; TEMP 36.3
== END 2023-04-21 11:47 | disposition home or self-care (01) ==
LOC: MEDOUTP 11:46
PROVIDERS: PCP Family Medicine; Referring Provider Family Medicine; Visit Provider Family Medicine
DX: D50.9 Iron deficiency anemia, unspecified (principal); G25.81 Restless legs syndrome
CPT/HCPCS: 96365; J1756; J7050; A4216

== ENCOUNTER 2023-04-23 11:53 | Outpatient (CLI) | payer MEDICARE, SELFPAY ==
[2023-04-23 12:01] VITALS: BP 149/73; PULSE 80; RESP 16; TEMP 36.3; O2SAT 97; BMI 21.2
[2023-04-23] MEDS: 0.9% NaCl Peripheral Flush Adult/Peds IV (12:19)
[2023-04-23] MEDS: 0.9% NaCl IVPB Med Flush (250 mL) 15 ML IV (12:19)
[2023-04-23] MEDS: Iron Sucrose Complex 200 MG in 0.9% Normal Saline (100mL Bag) 100 ML 220 MG IV (12:19)
[2023-04-23 13:09] VITALS: BP 142/73; PULSE 72; RESP 16
== END 2023-04-23 11:54 | disposition home or self-care (01) ==
LOC: MEDOUTP 11:53
PROVIDERS: PCP Family Medicine; Referring Provider Family Medicine; Visit Provider Family Medicine
DX: D50.9 Iron deficiency anemia, unspecified (principal); G25.81 Restless legs syndrome
CPT/HCPCS: 96365; J1756; J7050; A4216

== ENCOUNTER 2023-04-25 12:24 | Outpatient (CLI) | payer MEDICARE, SELFPAY ==
[2023-04-25 12:35] VITALS: BP 151/81; PULSE 84; RESP 16; TEMP 36.1
[2023-04-25] MEDS: 0.9% NaCl Peripheral Flush Adult/Peds IV (12:38)
[2023-04-25] MEDS: 0.9% NaCl IVPB Med Flush (250 mL) 15 ML IV (12:49)
[2023-04-25] MEDS: Iron Sucrose Complex 200 MG in 0.9% Normal Saline (100mL Bag) 100 ML 220 MG IV (12:53)
[2023-04-25 13:47] VITALS: BP 146/77; PULSE 74; RESP 16; TEMP 36.1
== END 2023-04-25 12:25 | disposition home or self-care (01) ==
LOC: MEDOUTP 12:24
PROVIDERS: PCP Family Medicine; Referring Provider Family Medicine; Visit Provider Family Medicine
DX: D50.9 Iron deficiency anemia, unspecified (principal); G25.81 Restless legs syndrome
CPT/HCPCS: 96365; J1756; J7050; A4216

== ENCOUNTER 2023-05-27 09:35 | Outpatient (CLI) | payer MEDICARE, SELFPAY ==
[2023-05-27 10:23] LABS: Absolute Lymphocyte Count 0.83 X10^3/uL (0.83-4.51); Absolute Neutrophil Count 4.1 X10^3/uL (2.0-7.7); Basophil# 0.02 X10^3/uL; Basophil% 0.4 % (0-1); Eosinophil# 0.12 X10^3/uL; Eosinophils% 2.1 % (0-5); Hematocrit 35.3 % (37-47); Hemoglobin 11.3 g/dL (12.0-15.0); Lymphocyte # 0.83 X10^3/ul (0.83-4.51); Lymphocyte % 14.8 % (19-41); Mean Corpuscular Hgb 30.5 pg (27.0-32.0); Mean Corpuscular Volume 95.1 fL (81-99); Mean Platelet Vol. 8.9 fl (6.2-12.0); Monocyte# 0.51 X10^3/uL; Monocyte% 9.1 % (0-10); NRBC Flagged by Analyzer 0 % (0-5); Neutrophil # 4.08 X10^3/uL (2.7-7.7); Neutrophil % 73.1 % (47-70); Platelet Count 308 K/mm3 (150-450); RBC Distribution Width CV 13.7 % (11.6-14.6); RBC Distribution Width SD 47.6 fl (35.1-43.9); Red Blood Count 3.71 M/mm3 (4.2-5.4); White Blood Count 5.6 K/mm3 (4.4-11.0)
[2023-05-27 11:01] LABS: Ferritin 236 ng/mL (8-252); Iron 61 ug/dL (50-170)
== END 2023-05-27 23:59 | disposition home or self-care (01) ==
LOC: MFPLAB 09:36
PROVIDERS: PCP Family Medicine; Visit Provider Family Medicine
DX: G25.81 Restless legs syndrome (principal); E61.1 Iron deficiency
CPT/HCPCS: 36415; 82728; 83540; 85025

== ENCOUNTER 2023-07-07 14:30 | Outpatient (RCR) | payer MEDICARE, SELFPAY ==
--- NOTE | 2023-06-09 16:01 | HP.OTEVAL_ITS ---
Patient's Visit Information Visit Information Visit Information: ARAM NOVOA is a 82 year old F, referred to Occupational Therapy by Dr. Corona Cooley MD, with a diagnosis of right 1st dorsal interosseous muscle. Date of Evaluation: 06/09/23 Occupational Therapist: Demi Art, ROMAN/Ky, CHT Subjective Subjective: This 82 year old female was seen for OT eval with dx of right 1st dorsal interosseous muscle. Pt states right thumb has been painful for a long time ( at least this last year) Pt states Dr. Cooley manipulated and found a painful spot- He rec'd therapy. pt has $40 dollar co-pay and wants to limit her visits pt states most pain with pulling pants up, socks, shoes- pt states she can not peel potatoes because her hand is so painful- pt states opening her mailbox is painful pt states she would like to know what more she can do to make her hand stop hurting. ADLs Dressing: Button shirt Fasteners: Buttons and Zippers Eating: Cut food Bathing: Squeeze shampoo bottle Kitchen: Chop with knife, Peel fruits & vegetables, Open jars, Open bottle caps and Ziplock bags Miscellaneous: Start car and Write Comments: pt lives alone on condo pt at KWASI level with ADLS and IADLs states if her thumb hurts she stops doing and will use other hand as much as possible Pain right thumb: Current Pain Intensity: 2 Pain Intensity Range: 4 and 7 ROM Wrist: right 70/70 left 65/75 CMC: right 20 left 20 MP: right 50 left 65 IP: right 60 left 60 Radial Abduction: right 35 left 40 Strength [facility]: right 35# left 30# Lateral Pinch: right 3# left 6# Tripod Pinch: right 3# left 4# Strength Comments: pt demo with increase bilateral thumb instability with re sistive testing greater on left than right Quick DASH-Disab of Arm,Shoulder& Hand Quick DASH Score: 63.6350 Goals Goal:: pt will report no right thumb pain greater than 1/10 with use of right thumb with pinch tasks and supportive brace by d/c Goal:: Pt will demo understanding of joint protection and ergonomics when performing BADLs and IADLs by d/c Pt will demo understanding of adaptive Equipment use to decrease stress on joints to allow pt to perform BADSL and IADLS at KWASI level. Goal:: Pt will demo understanding of using supportive bracing 80% of workday/ADLS to decrease stress on tendon origin to allow healing and decrease pain by end of 2nd session. Goal:: pt will demo understanding of median and ulnar nerve glides by end of 2nd session. Rehabilitation General Assessment: pt demo with right thumb pain increasing with resistance testing- pt demo with thumb instability limiting her IND with ADLs and IADLs by d/c. pt denies tingling/numbness but based on examination of muscles on bilateral hands question if nerve issue causing pain to right 1st dorsal interosseous muscle pain. Pt would benefit from skilled OT services 1x week for 4 weeks to decrease pts pain, ed. on supportive bracing as well as joint protection cristal. and ed. on ad. eq. to increase pts IND with ADLs and IADLs by d.c. Rehabilitation Potential: Good Anticipated Interventions Anticipated Interventions: A/AAROM/PROM, Triggerpoint Release, Modalities, Orthoses, Joint Protection/Energy Conservation, Ergonomic Education, Education re assistive Equipment, Education re Diagnosis and Home Program Visit Plan Frequency: Every Other Week Duration: 6 Weeks TEXT: Thank you for the opportunity to evaluate your patient. For Medicare and Medicare HMO plans, please review the plan of care and approve it. It will need to be FAXED BACK to us at [phone] for Medicare purposes. Please let me know if there are questions or concerns regarding this plan of care. Physician Jenifer tran: Date:
== END 2023-07-07 19:00 | disposition home or self-care (01) ==
LOC: OT 14:30
PROVIDERS: PCP Family Medicine; Referring Provider Family Medicine; Visit Provider Family Medicine
DX: M79.18 Myalgia, other site (principal)
CPT/HCPCS: 97035; 97166; 97530

== ENCOUNTER → 2023-10-17 | Outpatient (CLI) | payer MEDICARE, SELFPAY ==
[2023-10-17 13:14] LABS: ALB/GLOB Ratio 1.2 RATIO (0.9-2.4); AST(SGOT) 26 U/L (15-37); Alanine Aminotransfer ALT/SGPT 38 U/L (13-56); Albumin, Serum 3.8 g/dL (3.2-5.0); Alkaline Phosphatase 50 U/L (45-117); Anion Gap 8 (5-15); BUN 9 mg/dL (7-18); BUN/Creat Ratio 14.3 RATIO (10-20); Calcium,Total 8.8 mg/dL (8.5-10.1); Chloride 100 mmol/L (98-107); Creatinine, Serum 0.63 mg/dL (0.55-1.02); EST Glomerular Filtration Rate 96 mL/min (>60); Est Glom Filt Rate - Afr Amer 117 mL/min (>60); Globulin 3.2 g/dL (2.2-4.2); Glucose 101 mg/dL (74-106); Potassium 4.1 mmol/L (3.5-5.1); Sodium Level 134 mmol/L (136-145); Thyroid Stim Hormone (TSH) 2.49 uIU/mL (0.358-3.74)
== END | disposition home or self-care (01) ==
LOC: MFPLAB 09:55
PROVIDERS: PCP Family Medicine; Visit Provider Family Medicine
DX: R60.9 Edema, unspecified (principal); E03.9 Hypothyroidism, unspecified
CPT/HCPCS: 36415; 80053; 84439; 84443

== ENCOUNTER → 2023-11-25 | Outpatient (CLI) | payer MEDICARE, SELFPAY ==
--- NOTE | 2023-11-25 11:44 | RAD_ITS ---
STUDY: X-RAY - PELVIS REASON FOR EXAM: Female, 83 years old. Pain in pubic ramus. TECHNIQUE: One view of the pelvis was obtained. COMPARISON: None. FINDINGS: Normal bowel gas pattern with phleboliths. Osteopenia. Mild arthrosis of both sacroiliac joints. Mild arthrosis of the symphysis pubis. Mild arthrosis of both hips. Soft tissue calcification projected below the right ischium, likely representing the sequelae of remote trauma and measuring approximately 12 mm in diameter. RAD/Pelvis 1 or 2 Views IMPRESSION: Osteopenia with osteoarthritic changes. Right soft tissue calcification as described. Electronically Signed: Mendez Vasquez MD at 12:47 EDT ,
== END | disposition home or self-care (01) ==
LOC: MTRAD 11:43
PROVIDERS: PCP Family Medicine; Referring Provider Family Medicine; Visit Provider Family Medicine
DX: R10.2 Pelvic and perineal pain (principal)
CPT/HCPCS: 72170

== ENCOUNTER → 2023-12-04 | Outpatient (CLI) | payer MEDICARE, SELFPAY ==
--- NOTE | 2023-12-04 12:30 | US_ITS ---
STUDY: ULTRASOUND OF THE FEMALE PELVIS - COMPLETE REASON FOR EXAM: Female, 83 years old. 2 month history of pelvic pain. LMP: Patient is postmenopausal. TECHNIQUE: Transabdominal and Transvaginal TECHNICAL QUALITY: Adequate. COMPARISON: None. FINDINGS: The uterus is retroverted and is in a midline position. The uterus measures 6.1 cm x 3 cm x 2.3 cm. Normal uterine cervix. The endometrium is mildly thickened and measures 2.9 mm in thickness, and is fluid distended. There is no demonstrated endometrial mass. The uterus is of heterogeneous echotexture in keeping with fibroid change. I.U.D. - The patient does not have an I.U.D. The right ovary is visualized. The right ovary measures 2.6 cm x 2.1 cm x 1.7 cm. Small follicles are seen within it. There is no visualized right adnexal mass or complex lesion. There is normal arterial and normal venous vascularity. The left ovary is visualized. The left ovary measures 3.1 cm x 3 cm x 2 cm. Multiple small follicles are seen. There is no visualized left adnexal mass or complex lesion. There is normal arterial and normal venous vascularity. There is minimal fluid in the cul-de-sac. The pre void volume of the bladder was 380 ml. US/Pelvic w/ Transvaginal IMPRESSION: Mildly thickened fluid distended endometrium. Heterogeneous appearance of the uterus. Small follicles are seen in both ovaries. Electronically Signed: Miguelito Be MD at 15:19 EDT ,
== END | disposition home or self-care (01) ==
PROVIDERS: PCP Family Medicine; Referring Provider Family Medicine; Visit Provider Family Medicine
DX: R10.2 Pelvic and perineal pain (principal)
CPT/HCPCS: 76830; 76856

== ENCOUNTER → 2024-04-20 | Outpatient (CLI) | payer MEDICARE, SELFPAY | END | disposition home or self-care (01) | LOC: LABSPEC 15:50 | PROVIDERS: PCP Family Medicine; Visit Provider Family Medicine | DX: R82.90 Unspecified abnormal findings in urine (principal) | CPT/HCPCS: 87086; 87088 ==

== ENCOUNTER → 2024-04-27 | Outpatient (CLI) | payer MEDICARE, SELFPAY ==
--- NOTE | 2024-04-27 13:46 | RAD_ITS ---
HISTORY: cough. TECHNIQUE: XR Chest 2 Views. COMPARISON: 04/03/2022. FINDINGS: CARDIOMEDIASTINAL BORDERS: Cardiac silhouette within normal limits in size. Mediastinal contour also unchanged with calcification of the aortic knob. LUNGS: Chronic hyperinflation with biapical scarring. Mild linear bibasilar opacities. PLEURA: No pleural effusion or pneumothorax seen. OSSEOUS STRUCTURES: Degenerative change. RAD/Chest PA and Lateral IMPRESSION: Mild bibasilar atelectasis or inflammation. Electronically Signed: Negrita Green MD at 9:40 EST ,
== END | disposition home or self-care (01) ==
LOC: MTRAD 13:46
PROVIDERS: PCP Family Medicine; Referring Provider Family Medicine; Visit Provider Family Medicine
DX: R05.9 Cough, unspecified (principal)
CPT/HCPCS: 71046

== ENCOUNTER → 2024-06-03 | Outpatient (CLI) | payer MEDICARE, SELFPAY | END | disposition home or self-care (01) | LOC: MFPLAB 15:53 | PROVIDERS: PCP Family Medicine; Referring Provider Family Medicine; Visit Provider Family Medicine | DX: R60.9 Edema, unspecified (principal) | CPT/HCPCS: 87086; 87088; 87186 ==

== ENCOUNTER → 2024-11-03 | Outpatient (CLI) | payer MEDICARE, SELFPAY | END | disposition home or self-care (01) | LOC: CVS 14:42 | PROVIDERS: PCP Family Medicine; Referring Provider Family Medicine; Visit Provider Family Medicine | DX: R20.0 Anesthesia of skin (principal); I73.9 Peripheral vascular disease, unspecified | CPT/HCPCS: 93923 ==

== ENCOUNTER → 2024-11-18 | Outpatient (CLI) | payer MEDICARE, SELFPAY ==
[2024-11-18 14:02] LABS: Mucous, Urine 0 SEEN /hpf (<or=2+); Red Blood Cells-Urine 0 SEEN /hpf (0-5)
[2024-11-18 17:54] LABS: Hematocrit 36.3 % (37-47); Hemoglobin 12.1 g/dL (12.0-15.0); Mean Corp Hgb Conc 33.3 g/dL (32-36); Mean Corpuscular Hgb 31.8 pg (27.0-32.0); Mean Corpuscular Volume 95.3 fL (81-99); Platelet Count 348 K/mm3 (150-450); RBC Distribution Width CV 12.9 % (11.6-14.6); RBC Distribution Width SD 45.2 fl (35.1-43.9); Red Blood Count 3.81 M/mm3 (4.2-5.4); White Blood Count 6.4 K/mm3 (4.4-11.0)
[2024-11-18 18:01] LABS: Color, Urine Yellow (Yellow); Glucose, Dipstick Normal (Normal); Ketone-Dipstick Negative (Negative); Leukocyte Esterase-Dipstick 500 /ul (Negative); Nitrite-Dipstick Positive (Negative); Occult Blood-Urine 25 /ul (Negative); Protein-Dipstick 30 mg/dl (Negative); Urine Bilirubin Dipstick Negative (Negative); Urine Clarity Turbid (Clear); Urine Urobilinogen Normal (Normal); Urine pH 6.5 (5.0 - 8.0)
[2024-11-18 18:13] LABS: Erythrocyte Sedimentation Rate 3 mm/hr (0-30)
[2024-11-18 18:42] LABS: Anion Gap 13 (5-15); BUN 14 mg/dL (4-19); BUN/Creat Ratio 20.1 RATIO (10-20); Calcium,Total 9.1 mg/dL (7.6-11.0); Carbon Dioxide 24.8 mmol/L (21.0-32.0); Chloride 96 mmol/L (98-108); EST Glomerular Filtration Rate 85 (>60); Glucose 100 mg/dL (70-99); Iron 110 ug/dL (50-170); Potassium 4.2 mmol/L (3.3-5.1); Sodium Level 133 mmol/L (133-145); Vitamin B12 1186 pg/mL (180-914); Vitamin D,25 Hydroxy 46.9 ng/mL (30-100)
[2024-11-18 19:19] LABS: Bacteria 3+ /hpf (None Seen); White Blood Cells >100 SEEN /hpf (0-5)
[2024-11-18 19:20] LABS: Squamous Epithelial Cells - UA 5-10 SEEN /hpf (5-10)
== END | disposition home or self-care (01) ==
LOC: MFPLAB 13:54
PROVIDERS: PCP Family Medicine; Referring Provider Family Medicine; Visit Provider Family Medicine
DX: G62.9 Polyneuropathy, unspecified (principal); R82.90 Unspecified abnormal findings in urine; R20.0 Anesthesia of skin; E03.9 Hypothyroidism, unspecified
CPT/HCPCS: 36415; 80048; 81001; 82306; 82607; 83540; 84439; 84443; 85027; 85652; 87077; 87086; 87088; 87186

== ENCOUNTER → 2024-12-10 | Outpatient (CLI) | payer MEDICARE, SELFPAY | END | disposition home or self-care (01) | LOC: MFPLAB 14:07 | PROVIDERS: PCP Family Medicine; Referring Provider Family Medicine; Visit Provider Family Medicine | DX: R39.9 Unspecified symptoms and signs involving the genitourinary system (principal) | CPT/HCPCS: 87086; 87088; 87186 ==

== ENCOUNTER → 2025-01-14 | Outpatient (CLI) | payer MEDICARE, SELFPAY ==
--- NOTE | 2025-01-14 17:49 | US_ITS ---
PROCEDURE: KIDNEY AND BLADDER, 01/14/2025 REASON FOR EXAM: UTI TECHNIQUE: Grayscale and color doppler ultrasound of the kidneys and bladder was performed. COMPARISON: 04/09/2020 ; note that images only are available for review, the report is not available at the time of the dictation. FINDINGS: Exam slightly limited by shadowing bowel gas. Right kidney: 11.1 cm in length. No visualized mass, calculus, or hydronephrosis. Left kidney: Limited visualization. 9.6 cm in length. No definite mass, calculus, or hydronephrosis. Bladder: Unremarkable. Estimated prevoid volume 357 mL. Estimated postvoid residual 133 mL. Other: None. US/Kidney and Bladder IMPRESSION: 1. No hydronephrosis. 2. Estimated postvoid residual 133 mL. 3. Additional description as above. Reading Location: [id number]
== END | disposition home or self-care (01) ==
LOC: US 17:48
PROVIDERS: PCP Family Medicine; Referring Provider Urology; Visit Provider Urology
DX: N39.0 Urinary tract infection, site not specified (principal)
CPT/HCPCS: 76770

== ENCOUNTER → 2025-04-20 | Outpatient (CLI) | payer MEDICARE, SELFPAY | END | disposition home or self-care (01) | LOC: MTLAB 13:34 | PROVIDERS: PCP Family Medicine; Referring Provider Urology; Visit Provider Urology | DX: N39.0 Urinary tract infection, site not specified (principal) | CPT/HCPCS: 87077; 87086; 87088; 87186 ==